=== PATIENT | female | born 1995 | race Caucasian/White ===

== ENCOUNTER 2017-02-04 01:53 | Inpatient (IN) | payer OTHER ==
[2017-02-04 03:14] LABS: Hematocrit 35 % (35-47); Hemoglobin 11.5 g/dl (12.0-16.0); Mean Corpuscular HGB Conc 33 g/dl (31-36); Mean Corpuscular Hemoglobin 26 pg (27-31); Mean Corpuscular Volume 80 fL (80-97); Mean Platelet Volume 9 um3 (7.4-10.4); Red Blood Count 4.37 10^6/ul (4.0-5.4); Red Cell Distribution Width 16 % (10.5-15); White Blood Count 15.5 10^3/ul (3.5-10.8)
[2017-02-04 03:21] LABS: Add Diff/Slide Review? Slide Review Added; Comments Flag Yes
[2017-02-04] MEDS ORDERED: OBEPIDURAL* 250 ML ONE (05:13)
[2017-02-04] MEDS ORDERED: Phenylephrine IV* 40 MCG/ML 10 ML SYRINGE IV PUSH PRN ×2 (05:14)
[2017-02-04] MEDS ORDERED: Famotidine TAB* 20 MG PO PRN (05:14)
[2017-02-04] MEDS ORDERED: OBEPIDURAL* 250 ML EPIDURAL SCH (06:00)
[2017-02-04] MEDS ORDERED: Ondansetron INJ* 2 MG/ML VIAL IV PRN ×2 (08:24→12:35)
[2017-02-04] MEDS ORDERED: Oxytocin in LR* 20 UNITS/1,000 ML BAG IVPB ONE (08:33)
[2017-02-04] MEDS ORDERED: Ondansetron INJ* 2 MG/ML VIAL ONE ×2 (08:33→12:10)
[2017-02-04] MEDS ORDERED: Oxytocin in LR* 20 UNITS/1,000 ML BAG IVPB SCH ×2 (09:00→13:00)
[2017-02-04] MEDS ORDERED: Nalbuphine* 20 MG/ML 1 ML VIAL ONE (09:52)
[2017-02-04] MEDS: Nalbuphine* 20 MG/ML 1 ML VIAL IV PRN ×2 (09:53→20:50)
[2017-02-04] MEDS ORDERED: Sodium Citrate/Citric Acid* 15 ML UDC ONE (10:50)
[2017-02-04] MEDS ORDERED: ceFOXitin 2 GM IVPREMIX* 2 GM/50 ML BAG ONE (10:50)
[2017-02-04] MEDS ORDERED: Remifentanil* 2 MG VIAL ONE (11:38)
[2017-02-04] MEDS ORDERED: Morphine PF AMP (0.5MG/ML)* 5 MG/10 ML AMP ONE (11:57)
[2017-02-04] MEDS ORDERED: Ropivacaine (OR use only) 2 MG/ML 1 ML ONE (12:10)
[2017-02-04] MEDS ORDERED: Nalbuphine* 20 MG/ML 1 ML VIAL IV PRN (12:35)
[2017-02-04] MEDS ORDERED: DiMENhydriNATE IV* 50 MG/ML VIAL IV PUSH PRN ×2 (12:35→12:40)
[2017-02-04] MEDS ORDERED: Naloxone* 0.4 MG/ML 1 ML VIAL IV PRN (12:35)
[2017-02-04] MEDS ORDERED: Naloxone* 2 MG in NS 0.9% 250 ML* 250 ML IV PRN (12:35)
[2017-02-04] MEDS ORDERED: oxyCODONE/Acetamin 5/325 MG* TAB ONE (12:37)
[2017-02-04] MEDS: oxyCODONE/Acetamin 5/325 MG* TAB PO PRN ×3 (12:40→20:48)
[2017-02-04] MEDS ORDERED: Dibucaine 1% 28.35 GM TUBE PR PRN (12:44)
[2017-02-04] MEDS ORDERED: Witch Hazel PAD* JAR TOPICAL PRN (12:44)
[2017-02-04] MEDS ORDERED: Acetaminophen TAB* 325 MG PO PRN (12:44)
[2017-02-04] MEDS ORDERED: Glycerin ADULT SUPP PR PRN (12:44)
[2017-02-04] MEDS ORDERED: Zolpidem TAB* 5 MG PO PRN (12:44)
[2017-02-04] MEDS ORDERED: fentaNYL* 50 MCG/ML 2 ML VIAL (100 MCG VIAL) ONE (12:52)
[2017-02-04] MEDS: fentaNYL* 50 MCG/ML 2 ML VIAL (100 MCG VIAL) IV PRN ×2 (12:53→13:00)
[2017-02-04] MEDS: Docusate CAP* 100 MG PO SCH ×2 (14:43→20:49)
[2017-02-04] MEDS: Simethicone TAB* 80 MG TAB.CHEW PO SCH ×2 (18:30→20:49)
[2017-02-04] MEDS: Ibuprofen TAB* 600 MG PO PRN (18:30)
[2017-02-05] MEDS: Ibuprofen TAB* 600 MG PO PRN ×4 (00:49→20:46)
[2017-02-05] MEDS: oxyCODONE/Acetamin 5/325 MG* TAB PO PRN ×6 (00:50→23:49)
--- NOTE | 2017-02-05 05:17 | OP ---
DATE OF OPERATION: 02/04/17 - ROOM #117 DATE OF : 89 SURGEON: Henry Davis MD INVESTOR RELATIONS DIRECTOR: Kim Haines CNM PRE-OP DIAGNOSIS: Category 2 tracing remote from delivery. POST-OP DIAGNOSIS: Category 2 tracing remote from delivery. OPERATIVE PROCEDURE: Low transverse section. ESTIMATED BLOOD LOSS: 600 cc. COMPLICATIONS: None. FINDINGS: This is a 22-year-old 1, para 0, who presented in active labor. She got an epidural, approximately 3 cm progressed slowly up to 4 and was started on Pitocin with artificial rupture of membranes. Began to have deep variable decels that were recurrent with each contraction. Despite position change and O2 and IV fluids, it did not resolve and decision was made to proceed with . The risks, benefits , alternatives, and indications were discussed. Questions were answered at the time of section. She had a viable male, 's 9 and 9. The weight was 8 pounds 7 ounces. There was a nuchal cord noted around x1 and the cord up along the head along the pubic symphysis. Normal-appearing fallopian tubes and ovaries were visualized. DESCRIPTION OF PROCEDURE: The patient identified, procedure identified as a low transverse section. The patient was taken to the operating room, prepped and draped in the usual fashion in the left lateral recumbent position under epidural anesthesia. A Pfannenstiel incision made in the abdomen and carried down through fat, fascia, and peritoneum. A transverse incision was made in the lower uterine segment, extended laterally using blunt dissection. The above was delivered through the incision and the cord was doubly clamped and cut. The infant was handed to the waiting perianesthesia rn. Cord blood was obtained. Placenta delivered spontaneously. The uterus was wiped out with wet lap sponge. The uterine incision was then closed using 0 Polysorb in a running fashion. A second layer was used to imbricate the first layer. Good hemostasis was verified. The gutter was wiped out with a wet lap sponge. The peritoneum was then closed using 3- 0 Polysorb in a running fashion. Good hemostasis achieved in the subrectus layers. The fascia was closed using 0 Polysorb in a running fashion. Good hemostasis achieved in the subcu and the skin was closed with 4- 0 Monocryl in a subcuticular fashion. All sponge and instrument counts were correct. The patient returned to the recovery room in stable condition. [id number]/[facility] #: [id number] CRISTY
[2017-02-05 08:16] LABS: Hematocrit 27 % (35-47); Hemoglobin 8.7 g/dl (12.0-16.0); Mean Corpuscular HGB Conc 33 g/dl (31-36); Mean Corpuscular Hemoglobin 26 pg (27-31); Mean Corpuscular Volume 80 fL (80-97); Mean Platelet Volume 9 um3 (7.4-10.4); Red Blood Count 3.34 10^6/ul (4.0-5.4); Red Cell Distribution Width 17 % (10.5-15); White Blood Count 12.6 10^3/ul (3.5-10.8)
[2017-02-05] MEDS: Ferrous Gluconate TAB* 324 MG TAB PO SCH ×2 (08:56→20:46)
[2017-02-05] MEDS: Docusate CAP* 100 MG PO SCH ×3 (08:58→20:46)
[2017-02-05] MEDS: Simethicone TAB* 80 MG TAB.CHEW PO SCH ×4 (08:58→20:46)
[2017-02-05] MEDS ORDERED: Influenza VAC *QUAD* 2017-18* 0.5 ML SYRINGE IM ONE (09:00)
[2017-02-06] MEDS: Ibuprofen TAB* 600 MG PO PRN ×4 (03:45→22:58)
[2017-02-06] MEDS: oxyCODONE/Acetamin 5/325 MG* TAB PO PRN ×4 (06:12→22:59)
[2017-02-06] MEDS: Ferrous Gluconate TAB* 324 MG TAB PO SCH ×2 (09:15→21:40)
[2017-02-06] MEDS: Simethicone TAB* 80 MG TAB.CHEW PO SCH ×4 (09:15→21:40)
[2017-02-06] MEDS: Docusate CAP* 100 MG PO SCH ×3 (13:54→21:40)
[2017-02-07] MEDS: oxyCODONE/Acetamin 5/325 MG* TAB PO PRN (06:18)
[2017-02-07] MEDS: Ibuprofen TAB* 600 MG PO PRN (06:18)
[2017-02-07 07:46] VITALS: BP 121/62
[2017-02-07] MEDS: Simethicone TAB* 80 MG TAB.CHEW PO SCH (08:44)
[2017-02-07] MEDS: Ferrous Gluconate TAB* 324 MG TAB PO SCH (08:45)
[2017-02-07] MEDS: Docusate CAP* 100 MG PO SCH (09:42)
== END 2017-02-07 10:37 | disposition home or self-care (01) | DRG 766 ==
LOC: MCHOBOUT 01:53 → MCHOB 02:50
PROVIDERS: ADMIT Midwife; ATTEND Obstetrics & Gynecology
PROC: 10907ZC Drainage of Amniotic Fluid, Therapeutic from Products of Conception, Via Natural or Artificial Opening (ICD-10-PCS; 2017-02-04)
PROC: 4A1HX4Z Monitoring of Products of Conception, Cardiac Electrical Activity, External Approach (ICD-10-PCS; 2017-02-04)
PROC: 10D00Z1 Extraction of Products of Conception, Low, Open Approach (ICD-10-PCS; principal; 2017-02-04 11:24)
PROC: 3E0234Z Introduction of Serum, Toxoid and Vaccine into Muscle, Percutaneous Approach (ICD-10-PCS; 2017-02-06)
DX: O76 Abnormality in fetal heart rate and rhythm complicating labor and delivery (principal); O90.81 Anemia of the puerperium; Z37.0 Single live birth; O69.81X0 Labor and delivery complicated by cord around neck, without compression, not applicable or unspecified; Z3A.39 39 weeks gestation of pregnancy; O99.824 Streptococcus B carrier state complicating childbirth; Z23 Encounter for immunization
CPT/HCPCS: 36415; 85025; 86850; 86900; 86901; 90686; 99460; 99464; A9270-GY; J0694; J2300; J2405; J2540; J2795; J3010

== ENCOUNTER 2019-08-22 05:50 | Inpatient (IN) | payer MEDICAID, OTHER ==
[~2019-08-22 05:50] MED LIST: Buffered Lidocaine 1% SYRIN* 1 ML/SYRINGE INTRADERM ONE
--- OUTSIDE RECORDS SUMMARY | 2019-08-22 05:54 | XMS REPORT | Continuity of Care Document ---
:1995 External Reference #:[id number] Author Name Henry Davis M.D. 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 Problems Provider Date H/O: section Kim Haines CNM Onset: 03/02/2017 Social History Type Date Description Comments Sex Unknown Tobacco Use Start: Unknown Never Smoked Cigarettes Smoking Status Reviewed: 08/17/19 Never Smoked Cigarettes ETOH Use Does Not Drink Alcohol Tobacco Use Start: Unknown Patient has never smoked Recreational Drug Use Does Not Use Drugs Exercise Type/Frequency Does not exercise Seat Belt/Car Seat Always uses seat belt BRANDY: 02/09/2017 Estimated Date of Delivery Based on LMP Allergies, Adverse Reactions, Alerts Description No Known Drug Allergies Medications Active Medications SIG Qnty Indications Ordering Provider Date Ibuprofen take one tab by 30tabs Z01.818 Henry Davis, 08/17/2019 600mg Tablets mouth every 6 M.D. hours as needed pain Sertraline HCL 1 by mouth every 90tabs Desiree Daniels, 07/05/2019 25mg day Tablets Famotidine 1 by mouth daily. 60tabs Kim Haines CNM 03/07/2019 20mg Tablets may increase to twice a day as needed Medications Administered in Office Medication SIG Qnty Indications Ordering Provider Date PT SCRN Tbco Id as Non User Henry Davis M.D. 08/17/2019 Injection PT SCRN Tbco Id as Non User Desiree Daniels MD 03/22/2018 Injection PT SCRN Tbco Id as Non User Desiree Daniels MD 02/18/2018 Injection Doc Med RSN No Tbco SCRN Constanza Fausto, [facility] 08/31/2017 Injection PT SCRN Tbco Id as Non User Constanza Lambert, [facility] 08/31/2017 Injection PT SCRN Tbco Id as Non User Faiza Devries, [facility] 08/28/2017 Injection Immunizations CPT Code Status Date Vaccine Lot # [id number] Given 07/05/2019 Tetnus, Diptheria Toxoids And Acellular Pertussis, [id number] PT > 7Yrs Old 22996 Given 02/21/2019 Influenza Vaccine Quadrivalent Preser/Antibiotic [id number] Free Im Use 45882 Given 11/12/2016 Tetnus, Diptheria Toxoids And Acellular Pertussis, [id number] PT > 7Yrs Old Vital Signs Date Vital Result Comment 08/17/2019 9:01am BP Systolic 128 mmHg BP Diastolic 82 mmHg Body Temperature 98.1 F Heart Rate 84 /min Respiratory Rate 19 /min Height 64 inches 5'4" Weight 192.00 lb BMI (Body Mass Index) 33.0 kg/m2 3 Parity 1 01/21/2019 1:23pm BP Systolic 106 mmHg BP Diastolic 58 mmHg Height 64 inches 5'4" Weight 143.00 lb BMI (Body Mass Index) 24.5 kg/m2 3 Parity 1 Results Test Acquired Facility Test Result H/L Range Note Date Laboratory test 08/14/2019 [facility] Rupture of Negative 1 [place] [address] Membranes [phone] Urine Culture And 08/02/2019 [facility] Urine Culture SEE RESULT 2, 3 [place] [address] BELOW [phone] Laboratory test 08/02/2019 [facility] Gardnerella/Y SEE RESULT 4, 5 [place] [address] east: Vaginal BELOW [phone] Dna Laboratory test 08/02/2019 [facility] Group B Strep SEE RESULT 6, 7 [place] [address] Culture BELOW [phone] Screen Laboratory test 05/17/2019 [facility] Glucose 1 HR 88 mg/dL Normal 70-160 8, 9 [place] [address] Post Prandial [phone] CBC With No Diff 05/17/2019 [facility] White Blood 11.4 High 3.5-10.8 [place] [address] Count 10^3/uL [phone] Red Blood Count 4.15 10^6/uL Normal 3.70-4.87 Hemoglobin 12.5 g/dL Normal 12.0-16.0 Hematocrit 38 % Normal 35-47 Mean Corpuscular Volume 91 fL Normal 80-97 Mean Corpuscular Hemoglobin 30 pg Normal 27-31 Mean Corpuscular HGB Conc 33 g/dL Normal 31-36 Red Cell Distribution Width 15 % Normal 10-15 Platelet Count 228 10^3/uL Normal 150-450 Mean Platelet Volume 8.8 fL Normal 7.4-10.4 Laboratory 05/17/2019 [facility] Rubella Screen Equivocal Immune 10 [place] [address] IgG [phone] Drug Screen 03/29/2019 [facility] Urine None Detected None 11 [place] [address] Amphetamine Detect [facility] [phone] Screen Urine Barbiturates Screen None Detected None Detect Urine Benzodiazepine Screen None Detected None Detect Urine Cannabinoids Screen None Detected None Detect Urine Opiates Screen None Detected None Detect Urine Phencyclidine Screen None Detected None Detect 12 Urine Cocaine Screen None Detected None Detect Urine Hydrocodone Screen None Detected None Detect Urine Oxycodone Screen None Detected None Detect Urine Fentanyl Screen None Detected None Detect Urine Methadone Screen None Detected None Detect Urine Buprenorphine Screen None Detected None Detect GC/Chlamydia Dna 03/29/2019 [facility] GCCHL Disclaimer (SEE NOTE) 13 [place] [address] [phone] Chlamydia trachomatis Cheyenne Negative Negative Neisseria gonorrhoeae (GC) [place] Negative Negative 1 A NEGATIVE results indicates there is no evidence of membrane rupture. 2 [id number] 3 SEE RESULT BELOW Name: KEATON OTT DOB: [address]: Desiree Daniels MD Acct: [id number] Unit: [id number] AGE: 24 Location: [facility] Re08/02/19 SEX: F Status: REG REF SPEC: [id number] CRISTOBAL: 08/02/19-[address]: Desiree Daniels MD REQ: [id number] RECD: 08/02/19 STATUS: COMP _ SOURCE: URINE SPDESC: ORDERED: Urine Culture COMMENTS: [id number] Urine Source: Random Procedure Result Reported Site Urine Culture Final 08/03/19- 1221 ML No Growth (<1,000 CFU/mL) * - Main Lab . END OF REPORT DEPARTMENT OF PATHOLOGY, [address] [place] [address] Noel Heard M.D. Director NIKKIE # [id number] 4 [id number] 5 SEE RESULT BELOW Name: KEATON OTT : [address]: Desiree Daniels MD Acct: [id number] Unit: [id number] AGE: 24 Location: [facility] Re08/02/19 SEX: F Status: REG REF SPEC: [id number] CRISTOBAL: 08/02/19-[address] [facility] [address]: Desiree Daniels MD REQ: [id number] RECD: 08/02/19 STATUS: COMP _ SOURCE: VAGINAL SPDESC: ORDERED: Christophe,Yeast DNA COMMENTS: [id number] Would you like to order Trichomonas Vaginalis testing? No Procedure Result Reported Site Gardnerella/Yeast: Vaginal DNA Final 08/03/19- 1404 ML Organism 1 Negative Gardnerella Organism 2 Negative Anna Marie The presence of G. vaginalis, although suggestive, is not diagnostic for bacterial vaginosis. Results should be interpreted in conjuction with other clinical and laboratory data available. Women with vaginal discharge should be evaluated for risk factors of cervicitis and pelvic inflammatory disease, toxic shock syndrome (S.aureus), and if present, evaluated for organisms not included in this assay such as N. gonorrhoeae, C. trachomatis, Mobiluncus, Mycoplasma and/or Prevotella. Mixed infections may occur. The performance of this test on patient specimens collected during or immediately after antimicrobial therapy is unknown. The presence or absence of Anna Marie species, or G. vaginalis cannot be used as a test for therapeutic success or failure. * ML - Main Lab . END OF REPORT DEPARTMENT OF PATHOLOGY, [address] [place] [address] Noel Heard M.D. Director NIKKIE # [id number] 6 [id number] 7 SEE RESULT BELOW Name: KEATON OTT : [address]: Desiree Daniels MD Acct: [id number] Unit: [id number] AGE: 24 Location: [facility] Re08/02/19 SEX: F Status: REG REF SPEC: [id number] CRISTOBAL: 08/02/19-[address]: Desiree Daniels MD REQ: [id number] RECD: 08/02/19-1617 STATUS: COMP _ SOURCE: CER/VAG/RE SPDESC: ORDERED: Grp B Strp Scrn COMMENTS: [id number] QUERIES: Is patient penicillin allergic and/or sensitivities needed? N Provider Requisition # C77#[id number]_ Procedure Result Reported Site Group B Strep Culture Screen Final 08/04/19- 1446 ML Group B Strep Screen Positive Organism 1 STREP GROUP B Susceptibility testing of penicillins and other B-lactams approved by FDA for treatment of Streptococcus pyogenes (Group A Strep) and Streptococcus agalactiae (Group B Strep) is not necessary for clinical purposes and need not be done routinely, since as with vancomycin, resistant strains have not been recognized. (CLSI K469-B07;p.66) Positive isolates will be saved for one week. Please call the Microbiology Laboratory if further susceptibility testing is needed. * ML - Main Lab . END OF REPORT DEPARTMENT OF PATHOLOGY, [address] [place] [address] Noel Heard M.D. Director [facility] # [id number] 8 [id number] 11 [id number] 12 The specimen was tested at the listed cutoffs: Drug Class Test level (ng/mL) Hydrocodone 300 Oxycodone 100 Fentanyl 1 Methadone 150 Buprenorphine 5 Amphetamines 500 Barbiturates 200 Benzodiazepines 200 Cocaine 150 Cannabinoids 50 Opiates 300 PCP 25 Specimen was received without chain of custody. Results should be used for medical purposes only. 13 As with all diagnostic procedures, the laboratory results obtained should be used in conjunction with other clinical information available to the physician, including confirmation by another method, as applicable. Procedures Date Code Description Status 08/14/2019 93967 Non-Stress Test Completed 03/29/2019 29148 Echography Uterus Complete Completed Medical Devices Description No Information Available Encounters Type Date Location Provider Dx Diagnosis Office Visit 08/17/2019 [facility] Henry Davis, Z01.818 Encounter for other 9:20a M.DAbrahan preprocedural examination Office Visit 08/14/2019 Delivery Mor Mayorga MD O47.1 False labor at or 11:30a after 37 completed weeks of gestation Assessments Date Code Description Provider 08/17/2019 Z01.818 Encounter for other preprocedural Henry Davis M.D. examination 08/14/2019 O47.1 False labor at or after 37 completed weeks Mor Mayorga MD of gestation 08/12/2019 O34.211 Maternal care for low transverse scar from Aurea Anaya MD previous delivery 08/02/2019 Z34.83 Encounter for supervision of other normal Desiree Daniels MD , third trimester 07/19/2019 Z34.83 Encounter for supervision of other normal Henry Davis M.D. , third trimester 07/05/2019 Z23 Encounter for immunization Desiree Daniels MD 07/05/2019 Z34.83 Encounter for supervision of other normal Desiree Daniels MD , third trimester 06/20/2019 Z34.83 Encounter for supervision of other normal Henry Davis M.D. , third trimester 05/17/2019 Z36.9 Encounter for screening, Henry Davis M.D. unspecified 05/17/2019 Z36.9 Encounter for screening, Mor Mayorga MD unspecified 05/17/2019 Z36.9 Encounter for screening, Laboratory unspecified 04/20/2019 Z36.9 Encounter for screening, Aurea Anaya MD unspecified 03/29/2019 Z36.3 Encounter for screening for Shahid Scott JR, DO malformations 03/29/2019 O34.211 Maternal care for low transverse scar from Shahid Benjaminpankaj MEHTA, DO previous delivery 03/29/2019 Z36.3 Encounter for screening for Ultrasounds malformations 02/21/2019 Z23 Encounter for immunization Shahidtalia Benjaminpankaj MEHTA DO 02/21/2019 Z36.9 Encounter for screening, Shahid Benjaminpankaj MEHTA, DO unspecified Plan of Treatment Future Appointment(s):09/21/2019 10:40 am - Henry Davis M.D. at [facility]08/22/2019 7:45 am - Kim Haines CNM at [facility] O R008/29/2019 11:15 am - Carmencita Hodges CNM at [facility]08/22/2019 7:45 am - Henry Davis M.D. at [facility] O R105/22/2017 - Desiree Daniels MDZ01.411 Encounter for gynecological examination (general) (routine)New Medication:Lo Loestrin Fe 1 mg- 10 mcg / 10 mcg - take 1 tab by mouth daily as instructed on package.Comments: Maintain routine exercise and healthy diet. Try to get adequate sleep at night to improve your overall health (most people need ~8 hours!)Perform periodic breast exams at various times of the month to become familiar with your breast tissue so you are more likely to notice something abnormal. Return for annual exam in 1 year or earlier if concerns arise. Routine cervical cancer screening has changed. Pap smears are no longer done every year for low-risk women. A combination screening with both a pap smear (looking for abnormal cells ) and HPV testing are recommended every 3-5 years. It takes many years for normal cells to become abnormal and many more years for the abnormal cells to become cancer. Women should still come for a yearly visit and exam. When there is an abnormal pap smear or +HPV testing more frequent screening is recommended. Reviewed importance of taking OCPs daily. Will start with onset of next period which should be any time.F41.9 Anxiety disorder, unspecifiedComments:Given list of [id number] Headache Functional Status Description No Information Available Mental Status Description No Information Available Referrals Description No Information Available
--- OUTSIDE RECORDS SUMMARY | 2019-08-22 05:54 | XMS REPORT | Continuity of Care Document ---
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 Problems Active Problems Provider Date H/O: section Kim Haines CNM Onset: 03/02/2017 Social History Type Date Description Comments Sex Unknown Tobacco Use Start: Unknown Never Smoked Cigarettes Smoking Status Reviewed: 03/22/18 Never Smoked Cigarettes ETOH Use Does Not Drink Alcohol Tobacco Use Start: Unknown Patient has never smoked Recreational Drug Use Does Not Use Drugs Exercise Type/Frequency Does not exercise Seat Belt/Car Seat Always uses seat belt BRANDY: 02/09/2017 Estimated Date of Delivery Based on LMP Allergies, Adverse Reactions, Alerts Description No Known Drug Allergies Medications Active Medications SIG Qnty Indications Ordering Provider Date Sertraline HCL 1 by mouth every 90tabs Desiree Daniels, 07/05/2019 25mg day Tablets Famotidine 1 by mouth daily. 60tabs Kim Haines CNM 03/07/2019 20mg Tablets may increase to twice a day as needed Vitamin take 1 daily by Unknown mouth Tablets Medications Administered in Office Medication SIG Qnty Indications Ordering Provider Date PT SCRN Tbco Id as Non User Desiree Daniels MD 03/22/2018 Injection PT SCRN Tbco Id as Non User Desiree Daniels MD 02/18/2018 Injection Doc Med RSN No Tbco SCRN Constanza Lambert CNM 08/31/2017 Injection PT SCRN Tbco Id as Non User Constanza Lambert CNM 08/31/2017 Injection PT SCRN Tbco Id as Non User Faiza Devries, CN 08/28/2017 Injection Immunizations CPT Code Status Date Vaccine Lot # [id number] Given 07/05/2019 Tetnus, Diptheria Toxoids And Acellular Pertussis, 49R79 PT > 7Yrs Old 12579 Given 02/21/2019 Influenza Vaccine Quadrivalent Preser/Antibiotic [id number] Free Im Use 34297 Given 11/12/2016 Tetnus, Diptheria Toxoids And Acellular Pertussis, 7z9z5 PT > 7Yrs Old Vital Signs Date Vital Result Comment 01/21/2019 1:23pm BP Systolic 106 mmHg BP Diastolic 58 mmHg Height 64 inches 5'4" Weight 143.00 lb BMI (Body Mass Index) 24.5 kg/m2 3 Parity 1 03/22/2018 11:18am BP Systolic 110 mmHg BP Diastolic 78 mmHg Height 64 inches 5'4" Weight 137.00 lb BMI (Body Mass Index) 23.5 kg/m2 Last Menstrual Period [id number] 1 Parity 1 Results Test Acquired Date Facility Test Result H/L Range Note Laboratory test 08/02/2019 [facility] Gardnerella/Y <pending> [place] [address] east: Vaginal [phone] Dna Laboratory test 08/02/2019 [facility] Genital For <pending> [place] [address] GRP B Strep [phone] Only Laboratory test 05/17/2019 [facility] Glucose 1 HR 88 mg/dL Normal 70-160 1, 2 [place] [address] Post Prandial [phone] CBC With No 05/17/2019 [facility] White Blood 11.4 High 3.5- 10.8 [place] [address] Count 10^3/uL [phone] Red Blood Count 4.15 10^6/uL Normal 3.70-4.87 Hemoglobin 12.5 g/dL Normal 12.0-16.0 Hematocrit 38 % Normal 35-47 Mean Corpuscular Volume 91 fL Normal 80-97 Mean Corpuscular Hemoglobin 30 pg Normal 27-31 Mean Corpuscular HGB Conc 33 g/dL Normal 31-36 Red Cell Distribution Width 15 % Normal 10-15 Platelet Count 228 10^3/uL Normal 150-450 Mean Platelet Volume 8.8 fL Normal 7.4-10.4 Laboratory 05/17/2019 [facility] Rubella Screen Equivocal Immune 3 [place] [address] IgG [phone] Drug Screen 03/29/2019 [facility] Urine None Detected None 4 [place] [address] Amphetamine Detect Clinic [phone] Screen Urine Barbiturates Screen None Detected None Detect Urine Benzodiazepine Screen None Detected None Detect Urine Cannabinoids Screen None Detected None Detect Urine Opiates Screen None Detected None Detect Urine Phencyclidine Screen None Detected None Detect 5 Urine Cocaine Screen None Detected None Detect Urine Hydrocodone Screen None Detected None Detect Urine Oxycodone Screen None Detected None Detect Urine Fentanyl Screen None Detected None Detect Urine Methadone Screen None Detected None Detect Urine Buprenorphine Screen None Detected None Detect GC/Chlamydia Dna 03/29/2019 [facility] GCCHL Disclaimer (SEE NOTE) [address] [place] [address] [phone] Chlamydia trachomatis [place] Negative Negative Neisseria gonorrhoeae (GC) [place] Negative Negative 1 [id number] 2 [id number] 3 [id number] 4 [id number] 5 The specimen was tested at the listed cutoffs: Drug Class Test level (ng/mL) Hydrocodone 300 Oxycodone 100 Fentanyl 1 Methadone 150 Buprenorphine 5 Amphetamines 500 Barbiturates 200 Benzodiazepines 200 Cocaine 150 Cannabinoids 50 Opiates 300 PCP 25 Specimen was received without chain of custody. Results should be used for medical purposes only. 6 As with all diagnostic procedures, the laboratory results obtained should be used in conjunction with other clinical information available to the physician, including confirmation by another method, as applicable. Procedures Date Code Description Status 03/29/2019 36594 Echography Uterus Complete Completed Medical Devices Description No Information Available Encounters Description No Information Available Assessments Date Code Description Provider 08/02/2019 Z34.83 Encounter for supervision of other [...] Z36.3 Encounter for screening for Shahid Scott JR DO malformations 03/29/2019 O34.211 Maternal care for low transverse scar from Shahid Scott JR DO previous delivery 03/29/2019 Z36.3 Encounter for screening for Ultrasounds malformations 02/21/2019 Z23 Encounter for immunization Shahid Scott JR, DO 02/21/2019 Z36.9 Encounter for screening, Shahid Scott JR DO unspecified Plan of Treatment Future Appointment(s):09/21/2019 10:40 am - Henry Davis M.D. at [facility]08/22/2019 7:45 am - Kim Haines CNM at [facility] O R008/29/2019 11:15 am - Carmencita Hodges CNM at [facility]08/22/2019 7:45 am - Henry Davis M.D. at [facility] O R008/09/2019 10:30 am - Desiree Daniels MD at [facility] 9:00 am - Henry Davis M.D. at [facility]03/22/2018 - Desiree Daniels MDZ01.411 Encounter for gynecological examination (general) (routine)New Medication:Lo Loestrin Fe 1 mg-10 mcg / 10 mcg - take 1 tab by mouth daily as instructed on package.Comments:Maintain routine exercise and healthy diet. Try to [...] combination screening with both a pap smear ( looking for abnormal cells) and HPV testing are recommended every 3-5 [...] any time.F41.9 Anxiety disorder, unspecifiedComments:Given list of [id number] Headache Functional Status Description No Information Available Mental Status Description No Information Available Referrals Description No Information Available
--- OUTSIDE RECORDS SUMMARY | 2019-08-22 05:54 | XMS REPORT | Continuity of Care Document ---
:1995 External Reference #:[id number] Author Name Aurea Anaya MD (transmitted by agent of provider Mary Jane Avina) Address [address] [place] [address] Care Team Providers Name Role Phone Yodit Curran FNP-C Care Team Information Geographic Information Systems Analyst [phone] Problems Active Problems Provider Date H/O: section [...] every 90tabs Desiree Daniels, 07/05/2019 25mg day MD Tablets Famotidine 1 by mouth daily. 60tabs Kmi Haines CNM 03/07/2019 20mg Tablets may increase [...] CPT Code Status Date Vaccine Lot # [id number] Given 07/05/2019 Tetnus, Diptheria Toxoids And Acellular Pertussis, [id number] PT > 7Yrs Old [address] Given 02/21/2019 Influenza Vaccine Quadrivalent Preser/Antibiotic [id number] Free Im Use 11986 Given 11/12/2016 Tetnus, Diptheria Toxoids And Acellular [...] Mass Index) 23.5 kg/m2 Last Menstrual Period [id number] 1 Parity 1 Results Test Acquired Facility Test Result H/L Range Note Date Urine Culture And 08/02/2019 [facility] Urine SEE RESULT 1 , 2 [place] [address] Culture BELOW [phone] Laboratory test 08/02/2019 [facility] Gardnerella/ SEE RESULT 3, 4 [place] [address] Yeast: BELOW [phone] Vaginal Dna Laboratory test 08/02/2019 [facility] Group B SEE RESULT 5 , 6 [place] [address] Strep BELOW [phone] Culture Screen Laboratory test 05/17/2019 [facility] Glucose 1 HR 88 mg/dL Normal 70-160 7, 8 [place] [address] Post [phone] Prandial CBC With No Diff 05/17/2019 [facility] White Blood 11.4 High 3.5-10.8 [place] [address] Count 10^3/uL [phone] Red Blood Count 4.15 10^6/uL Normal 3.70-4.87 Hemoglobin 12.5 g/dL Normal 12.0-16.0 Hematocrit 38 % Normal 35-47 Mean Corpuscular Volume 91 fL Normal 80-97 Mean Corpuscular Hemoglobin 30 pg Normal 27-31 Mean Corpuscular HGB Conc 33 g/dL Normal 31-36 Red Cell Distribution Width 15 % Normal 10-15 Platelet Count 228 10^3/uL Normal 150-450 Mean Platelet Volume 8.8 fL Normal 7.4-10.4 Laboratory 05/17/2019 [facility] Rubella Screen Equivocal Immune 9 [place] [address] IgG [phone] Drug Screen 03/29/2019 [facility] Urine None Detected None 10 [place] [address] Amphetamine Detect Clinic [phone] Screen Urine Barbiturates Screen None Detected None Detect Urine Benzodiazepine Screen None Detected None Detect Urine Cannabinoids Screen None Detected None Detect Urine Opiates Screen None Detected None Detect Urine Phencyclidine Screen None Detected None Detect 11 Urine Cocaine Screen None Detected None Detect Urine Hydrocodone Screen None Detected None Detect Urine Oxycodone Screen None Detected None Detect Urine Fentanyl Screen None Detected None Detect Urine Methadone Screen None Detected None Detect Urine Buprenorphine Screen None Detected None Detect GC/Chlamydia Dna 03/29/2019 [facility] Disclaimer (SEE NOTE) [address] [place] [address] [phone] Chlamydia trachomatis [place] Negative Negative Neisseria gonorrhoeae (GC) [place] Negative Negative 1 [id number] 2 SEE RESULT BELOW Name: KEATON OTT : [address]: Desiree Daniels MD Acct: [id number] Unit: [id number] AGE: 24 Location: [facility] Re08/02/19 SEX: F Status: REG REF SPEC: [id number] CRISTOBAL: 08/02/19-13[address] [facility] [address]: Desiree Daniels MD REQ: [id number] RECD: 08/02/19 STATUS: COMP _ SOURCE: URINE SPDESC: ORDERED: Urine Culture COMMENTS: [id number] Urine Source: Random Procedure Result Reported Site Urine Culture Final 08/03/19- 1221 ML No Growth (<1,000 CFU/mL) * ML - Main Lab . END OF REPORT DEPARTMENT OF PATHOLOGY, [address] [place] [address] Noel Heard M.D. Director [facility] # [id number] 3 [id number] SEE RESULT BELOW Name: KEATON OTT : [address]: Desiree Daniels MD Acct: [id number] Unit: [id number] AGE: 24 Location: [facility] Re08/02/19 SEX: F Status: REG REF SPEC: [id number] CRISTOBAL: 08/02/19-[address]: Desiree Daniels MD REQ: [id number] RECD: 08/02/19 STATUS: COMP _ SOURCE: VAGINAL SPDESC: ORDERED: ChristopheYeast DNA COMMENTS: [id number] Would you like to order Trichomonas Vaginalis [...] . END OF REPORT DEPARTMENT OF PATHOLOGY, [address] [place] [address] Noel Heard M.D. Director [facility] # [id number] 5 [id number] 6 SEE RESULT BELOW Name: OTTKEATON KATHRYN : [address]: Desiree Daniels MD Acct: [id number] Unit: [id number] AGE: 24 Location: [facility] Re08/02/19 SEX: F Status: REG REF SPEC: [id number] CRISTOBAL: 08/02/19-[address]: Desiree Daniels MD REQ: [id number] RECD: 08/02/19 STATUS: COMP _ SOURCE: CER/VAG/RE SPDESC: ORDERED: Conrado Beltran Scrn COMMENTS: [id number] QUERIES: Is patient penicillin allergic and/or sensitivities needed? N Provider Requisition # [id number]_ Procedure Result Reported Site Group B Strep [...] resistant strains have not been recognized. (CLSI [id number];p.66) Positive isolates will be saved for one week. Please call the Microbiology Laboratory if further susceptibility testing is needed. * ML - Main Lab . END OF REPORT DEPARTMENT OF PATHOLOGY, [address] [place] [address] Noel Heard M.D. Director [facility] # [id number] 7 [id number] 9 [id number] 10 [id number] 11 The specimen was tested at the listed cutoffs: Drug Class Test level (ng/mL) Hydrocodone 300 Oxycodone 100 Fentanyl 1 Methadone 150 Buprenorphine 5 Amphetamines 500 Barbiturates 200 Benzodiazepines 200 Cocaine 150 Cannabinoids 50 Opiates 300 PCP 25 Specimen was received without chain of custody. Results should be used for medical purposes only. 12 As with all diagnostic procedures, the laboratory results obtained should be used in conjunction with other clinical information available to the physician, including confirmation by another method, as applicable. Procedures Date Code Description Status 03/29/2019 44843 Echography Uterus Complete Completed Medical Devices Description [...] 03/29/2019 Z36.3 Encounter for screening for Shahid Tyler MEHTA, DO malformations 03/29/2019 O34.211 Maternal care for low transverse scar from Shahid Scott JR, DO previous delivery 03/29/2019 Z36.3 Encounter for screening for Ultrasounds malformations 02/21/2019 Z23 Encounter for immunization Shahid Scott JR, DO 02/21/2019 Z36.9 Encounter for screening, Shahid Scott JR, DO unspecified Plan of Treatment Future Appointment(s):08/17/2019 9:20 am - Henry Davis M.D. at [facility]09/21/2019 10:40 am - Henry Davis M.D. at [facility]08/22/2019 7: 45 am - Kim Haines CN[facility] [place] [facility] R008/29/2019 11:15 am - Carmencita Hodges CNM at [facility]08/22/2019 7:45 am - Henry Davis M.D. at [facility] [place] [facility] [id number] - Desiree Daniels MDZ01.411 Encounter for gynecological examination ( general) (routine)New Medication:Lo Loestrin Fe 1 mg-10 mcg [...] both a pap smear (looking for abnormal cells) and HPV testing are [...] any time.F41.9 Anxiety disorder, unspecifiedComments:Given list of [id number] Headache Functional Status Description No Information Available Mental Status Description No Information Available Referrals Description No Information Available
--- OUTSIDE RECORDS SUMMARY | 2019-08-22 05:54 | XMS REPORT | Continuity of Care Document ---
:1995 Author Organization 0001 - S [facility] Address [address] [place] [address] Phone Care Team Providers Name Role Phone CAROL AGRCIA MD Unavailable Unavailable Allergies, Adverse Reactions, Alerts Substance Reaction Status METHYLPHENIDATE HCL Shakiness (moderate to severe) Active Medications Medication Instructions Dosage Effective Dates Status Comments (start - stop) Prozac 20 mg capsule take 2 capsule by 40 MG - Active oral route every day in the morning Topamax 25 mg tablet take 1 by Oral route 1 - Active every bedtime Tamiflu 75 mg take 1 capsule by 75 MG - No Longer capsule oral route 2 times Active every day azithromycin 250 mg take 2 tablet by 500 MG - No Longer tablet oral route every Active day for 1 day then 1 tablet (250 mg) by oral route once daily for 4 days Problems Condition Effective Dates (start - stop) Clinical Status URI with cough and congestion Acute non-recurrent sinusitis, unspecified location Exposure to the flu Viral warts, unspecified type Numbness of left hand Painful lumpy left breast Unspecified lump in the left breast, unspecified quadrant Encounter for screening for - respiratory tuberculosis Cellulitis of left breast Heart palpitations 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 without status migrainosus Encounter for screening for respiratory tuberculosis Painful lumpy left breast Unspecified lump in the left breast, unspecified quadrant Cellulitis of left breast Unspecified lump in the left breast, - upper outer quadrant 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 without status migrainosus Fatigue, unspecified type Heart palpitations Periumbilical abdominal pain Anxiety 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 without status migrainosus Encounter for screening for respiratory tuberculosis 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 without status migrainosus Hematuria, unspecified type Bilious vomiting with nausea URI with cough and congestion Acute pharyngitis, unspecified Cntct w and expsr to environ tobacco - smoke (acute) (chronic) state, incidental - Abdominal pain affecting Hydronephrosis, right Anxiety Anxiety Postop check Encounter for removal of sutures - Cntct w and expsr to environ tobacco - smoke (acute) (chronic) Hypertrophic scar Diarrhea, unspecified type Abdominal pain affecting Unspecified abdominal pain Palpitations Dizziness Palpitations Fatigue, unspecified type Acute sphenoidal sinusitis, unspecified Acute sphenoidal sinusitis, unspecified Keloid of skin Viral URI Other viral agents as the cause of diseases classified elsewhere Major depressive disorder, single episode, unspecified Adult general medical exam Anxiety Encounter for screening for respiratory tuberculosis Foreign body in skin Acute pharyngitis Disorder, attention deficit w/o hyperactivity Subscapularis (muscle) sprain Pain in joint involving shoulder region Sinusitis, Acute Shoulder strain Depression Disorder, attention deficit w/hyperactivity Influenza Vaccine - Depression Disorder, attention deficit w/hyperactivity Wart Warts, other specified viral - Disorder, attention deficit w/o hyperactivity Depression Wart Sinusitis, acute Inguinal lymphadenopathy Skin lesion of left leg Disorder, attention deficit w/hyperactivity Disorder, attention deficit - w/hyperactivity Attention deficit disorder with hyperactivity Disorder, attention deficit - w/hyperactivity Attention deficit disorder with hyperactivity Sinusitis, Acute Disorder, attention deficit - w/hyperactivity Sinusitis, Acute - Rhinitis, allergic NOS Sinusitis, Acute Otitis media Rhinitis, allergic NOS - Sinusitis, Acute - Otitis media NOS - Attention deficit disorder with hyperactivity Disorder, attention deficit - w/hyperactivity Disorder, attention deficit w/o hyperactivity Disorder, attention deficit w/o - hyperactivity Depression Disorder, attention deficit w/o hyperactivity Depression - Disorder, attention deficit w/o - hyperactivity Depressed Depression - Acute lower UTI Urinary Tract Infection - Urinary Tract Infection - Acute lower UTI Urinary Tract Infection - Urinary Tract Infection - Contraception management Contraceptive management NOS - Screening for malignant neoplasm, cervix Screening for malignant neoplasm, - cervix Check, routine, /child - Attention deficit disorder with - Chronic hyperactivity Attention deficit disorder with - Chronic hyperactivity Check, routine, infant/child Routine Procedures Procedure Date Office/outpatient visit,est, mod Results Test Name Date and Time Measure Units Reference Range Abnormal Flag Status Comments Panel Description: Influenza virus A Final SPECIMEN: collection methods: and B and Respiratory syncytial virus NASOPHARYNGEAL RNA panel - Upper respiratory specimen by JUSTYN with probe detection FLU See Final Name: CYNTHIA OTT A/B 11:48:00 comment : 1995 Sex: Galvez# RSV Loc Src Site NAAT [id number] 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 INFLUENZA A/B NAAT FINAL POSITIVE INFLUENZA B RNA BY PCR [facility] DEPT NOTIFIED BY ECLRS RSV NAAT FINAL NEGATIVE FOR RSV RNA BY PCR.GONSALEZ FOR RESULTS: - NEW RESULTATT.PHYS.: ZAHRA TAYLOR LOCATION: [facility]--ADM.DATE: 05/31/19 PATIENT : CYNTHIA OTT MICROBIOLOGYPRINTED: 05/31/19 22:18 REGULAR 2 PAGE: 2 of 1 1NG,,[id number],,[id number],

Encounters Encounter Practice Location Reason(s) Diagnoses Date Provider Providers Description For Visit Copied on Encounter 0001 - [facility] JOSE MEDINA. [facility], [facility] 5-202 [facility] [address], [place] [address]. [place], tel:[phone], [place] [address] tel:[phone] Office/outpa 0001 - S Cold URI with cough and NEDLIK home [employer], Primary symptoms congestionAcute ZAHRA. 119 visit,est, 57 Care (chief non-recurrent [address], mod [facility] complaint) sinusitis, [facility], [place] Cough unspecified [place], [place], [place] (chief locationExposure [address]. [place], complaint) to the flu tel:[phone], [place] [address] tel:[phone] 0001 - [facility] Viral warts, CONSOLAZIO [employer], Walk-In unspecified [place]. Center typeNumbness of 9 [address] [facility], [place], [place], [place], [address]. [address], [place] tel:[phone] tel:[phone] 0001 - S Painful lumpy left Aug-0 LORD PACO. [employer], Primary breastUnspecified 6-201 [facility] 119 33[address]57 Care lump in the left 9 [facility], [facility] breast, [facility], [place] unspecified [place], [place], [place] quadrant [address]. [place], tel:[phone], [place] [address] tel:[phone] 0001 - S Nov-2 LORD ANTONIO. [employer], Primary 2-201 [facility] [address] [place] [address], [facility], [place], [place] [address]. [place], tel:[phone], [place] [address] tel:[phone] 0001 - S Encounter for Champ- PACO. [employer], Primary screening for 2-201 [facility] 119 33[address] [place] [address] tuberculosis [facility], [facility], [place], [place] [address]. [place], tel:[phone], [place] [address] tel:[phone] 0001 - S Cellulitis of left Champ-0 LORD PACO. [employer], Primary breastHeart 4-201 [facility] [address] 33[address] [facility] table persistent [facility], [place] migraine aura [facility] without cerebral [address]. [place], infarction and tel:[phone], [place] without status [address] tel:[phone] migrainosusEncount [phone] er for screening for respiratory tuberculosis 0001 - S Painful lumpy left September-2 LORD PACO. S Inc, Primary breastUnspecified 8-201 [facility] 119 33-57 Care lump in the left 9 [facility], [facility] breast, [facility], [place] unspecified [place], [place] quadrantCellulitis [address]. [place], of left tel:[phone], [place] breastUnspecified [address] tel:[phone] lump in the left [phone] breast, upper outer quadrant 0001 - S Intractable September-0 LORD PACO. S Inc, Primary persistent 1-201 [facility] [address] Care migraine aura 9 [facility] without cerebral [facility], [place] infarction and [facility] without status [address]. [place], migrainosusFatigue tel:[phone], [place] , unspecified [address] tel:[phone] typeHeart [phone] palpitationsPerium bilical abdominal pain 0001 - S AnxietyIntractable Oct-0 LORD PACO. S Inc, Primary persistent 2-201 [facility] [address] 33[address] Care migraine aura 8 [facility] without cerebral [address], [place] infarction and [facility] without status [address]. [place], migrainosusEncount tel:[phone], [place] er for screening [address] tel:[phone] for respiratory [phone] tuberculosis 0001 - S Intractable Nov-2 LORD PACO. S Inc, Primary persistent 6-201 [facility] [address] 33[address] aura [address] [facility] without cerebral [address], [place] infarction and [facility] without status [address]. [place], migrainosus tel:[phone], [place] [address] tel:[phone] 0001 - S Hematuria, LORD PACO. S Inc, Primary unspecified 6 [facility] 119 33[address] [facility] vomiting with [facility], [place], [place] [address]. [place], tel:[phone], [place] [address] tel:[phone] 0001 - S URI with cough and ANGIE S Inc, Walk-In congestionAcute JEFFRY. [address] Center pharyngitis, [address] [place] [address] Iraj unspecifiedCntct w [facility], [place], and expsr to [facility], [address]. [place], smoke (acute) tel:[phone], [place] (chronic) [address] tel:[phone] state, incidental [phone] 0001 - S Abdominal pain LORD PACO. S Inc, Primary affecting [facility] 119 33[address] [facility] rosis, [facility], [place] rightAnxiety [place], [place] [address]. [place], tel:[phone], [place] [address] tel:[phone] 0001 - S Anxiety Oct- LORD PACO. S Inc, Primary [facility] 119 [address] [place] [address], [place], [place] [address]. [place], tel:[phone], [place] [address] tel:[phone] 0001 - S Postop September- FELY ALVINO. [facility] Inc, ENT/Facia checkEncounter for 3 [address] 33[address]57 l Plastic removal of [facility], [address] [facility] suturesCntct w and 355, [facility], expsr to [place], [place], [place] tobacco smoke [address]. [place], (acute) (chronic) tel:[phone], [place] [address] tel:[phone] 0001 - S Hypertrophic scar September- FELY ALVINO. [facility], ENT/Facia 1-201 [address], [address] [facility] 355, [facility], [place], [place] [address]. [place], tel:[phone], [place] [address] tel:[phone] 0001 - S Diarrhea, May-0 LORD PACO. S Inc, Primary unspecified 9-201 [facility] 119 33-57 Care typeAbdominal pain [address], [facility], [place] pregnancyUnspecifi [place], [place] ed abdominal pain [address]. [place], tel:[phone], [place] [address] tel:[phone] 0001 - S Palpitations Mar-2 LORD PACO. S Inc, Primary 8-201 [facility] [address], [facility], [place], [place] [address]. [place], tel:[phone], [place] [address] tel:[phone] 0001 - S DizzinessPalpitati Freddie-1 LORD PACO. [facility], Primary onsFatigue, 2-201 [facility] 119 33-57 Care unspecified type [address], [facility], [place], [place] [address]. [place], tel:[phone], [place] [address] tel:[phone] 0001 - S Acute sphenoidal Freddie-1 LORD PACO. S Inc, Primary sinusitis, 0-201 [facility] 119 [address] Care unspecified [address], [facility], [place], [place] [address]. [place], tel:[phone], [place] [address] tel:[phone] 0001 - S Acute sphenoidal Nov-2 LORD PACO. S Inc, Primary sinusitis, 9-201 [facility] 119 33[address]oid [address], [facility], [place], [place] [address]. [place], tel:[phone], [place] [address] tel:[phone] 0001 - [facility] Viral URIOther Sep- JOSE MEDINA. S Inc, Primary viral agents as [facility] 119 33-57 Care the cause of 6 [facility] diseases [facility], [place] classified [place], [place] elsewhere [address]. [place], tel:[phone], [place] [address] tel:[phone] 0001 - [facility] Major depressive Jan- LORD ANTONIO. S Inc, Primary disorder, single [facility] 119 33-57 Care episode, 6 [facility], [facility] unspecified [facility], [place], [place] [address]. [place], tel:[phone], [place] [address] tel:[phone] 0001 - [facility] Adult general LORD ANTONIO. [facility] Inc, Primary medical [facility] 119 33-[address] [facility] er for screening [facility] for respiratory [place], [place], [place] tuberculosis [address]. [place], tel:[phone], [place] [address] tel:[phone] 0001 - [facility] Foreign body in LORD ANTONIO. S Inc, Primary skin [facility] 119 33-57 Care 5 [facility], [facility], [facility], [place], [place] [address]. [place], tel:[phone], [place] [address] tel:[phone] 0001 - [facility] Acute pharyngitis [facility] Inc, Walk-In DANVERS. [address] Center 5 [address] [facility], Street, [facility], [address]. [place], tel:[phone], [place] [address] tel:[phone] 0001 - S Disorder, LORD ANTONIO. S Inc, Primary attention deficit [facility] 119 33-57 Care w/o [address] , [facility] hyperactivitySubsc [facility] apularis (muscle) [place], [place] [address]. [place], joint involving tel:[phone], [place] shoulder region [address] tel:[phone] 0001 - S Sinusitis, LORD ANTONIO. Referring [facility], Primary AcuteShoulder 0-201 [facility] 119 Provider: 33-57 Care strain [address], PACO , [facility] [address], [place], [place], [facility], [place] [address]. [place], tel:[phone] [place], [address], [place] [address] [place], [address]. tel:+60 tel:[phone] 0001 - S DepressionDisorder Sep-2 LORD ANTONIO. [facility] Inc, Primary , attention 5-201 [facility] 119 33-57 Care deficit 4 [facility], [facility] w/hyperactivityInf [place], [place] [address]. [place], tel:[phone], [place] [address] tel:[phone] 0001 - S DepressionDisorder Aug-2 LORD ANTONIO. [facility] Inc, Primary , attention 8-201 [facility] 119 33-57 Care deficit 4 [facility], [facility] w/hyperactivityWar [facility], [facility], [place], [place], [place] specified viral [address]. [place], tel:[phone], [place] [address] tel:[phone] 0001 - [facility] Disorder, LORD ANTONIO. [facility] Inc, Primary attention deficit 1-201 [facility] 119 33-57 Care w/o 4 [facility] hyperactivityDepre [facility] ssionValiert [place], [place] [address]. [place], tel:[phone], [place] [address] tel:[phone] 0001 - S Sinusitis, acute JOSE MEDINA. Referring [facility] Inc, Primary 7-201 [facility] PC 119 Provider: 3357 Care [address] [facility] CAROL [facility] SKI, [facility], [place], [place], PC 119 [place] [address]. [facility], [place], tel:[phone] [place] [address], [place] [address] [place], tel:+160 [place], [address]. [phone] tel:[phone] 0001 - S Inguinal Referring [facility] Inc, Walk-In lymphadenopathySki Provider: 33-57 Center n lesion of left 3 WALKIN [address] Omid leg OMID, Street, [address] [place] [address], [place], [address], [address], [place], tel:[phone] [place], [phone]. [phone] 0001 - S Disorder, September-2 LORD PACO. [facility] Inc, Primary attention deficit 3-201 [facility] 119 33-57 Care w/hyperactivityDis 3 [facility], [facility] order, attention [facility], [place] deficit [place], [place] w/hyperactivity [address]. [place], tel:[phone], [place] [address] tel:[phone] 0001 - S Attention deficit May-1 LORD PACO. [facility] Inc, Primary disorder with 0-201 [facility] 119 33-57 Care hyperactivityDisor 3 [facility], [facility] barbara, attention [facility], [place] deficit [place], [place], [place] w/hyperactivity [address]. [place], tel:[phone], [place] [address] tel:[phone] 0001 - S Attention deficit May-0 LORD PACO. S Inc, Primary disorder with 3-201 [facility] 119 33-57 Care hyperactivitySinus 3 [facility], [facility] itis, [facility], [place] AcuteDisorder, [place], [place], [place] attention deficit [address]. [place], w/hyperactivitySin tel:[phone], [place] usitis, Acute [address] tel:[phone] 0001 - [facility] Rhinitis, allergic Apr-2 JOSE MEDINA. Referring [facility] Inc, Primary NOSSinusitis, [facility] PC 119 Provider: 33-57 Care AcuteOtitis 3 [facility] mediaRhinitis, [place] [address], [address], [place] allergic [place], [place], PC 119 Johnny NOSSinusitis, [address]. [facility], [place], [place], AcuteOtitis media tel:[phone] [place] [address], [place] [address] [place], tel:+160 [place], [address]. [phone] tel:[phone] 0001 - S Attention deficit Apr-1 LORD PACO. S Inc, Primary disorder with 9-201 [facility] 119 33-57 Care hyperactivityAtten 3 [facility], [facility] tion deficit [facility] disorder with [place], [place], [place] hyperactivityAtten [address]. [place], tion deficit tel:[phone], [place] disorder with [address] tel:[phone] hyperactivityDisor [phone] barbara, attention deficit w/hyperactivity 0001 - S Disorder, Mar-2 LORD PACO. S Inc, Primary attention deficit 5-201 [facility] 119 33-57 Care w/o 3 [facility], [facility] hyperactivityDisor [facility] barbara, attention [place], [place], [place] deficit w/o [address]. [place], hyperactivity tel:[phone], [place] [address] tel:[phone] 0001 - S Mar-2 LORD PACO. S Inc, Primary 1-201 [facility] 119 33-57 Care 3 [facility], [facility], [place], [place] [address]. [place], tel:[phone], [place] [address] tel:[phone] 0001 - S DepressionDisorder Mar-2 LORD PACO. S Inc, Primary , attention 0-201 [facility] 119 33-57 Care deficit w/o 3 [facility], [facility] hyperactivityDepre [facility] ssionDisorder, [place], [place], [place] attention deficit [address]. [place], w/o hyperactivity tel:[phone], [place] [address] tel:[phone] 0001 - S DepressedDepressio Feb-2 LORD PACO. S Inc, Primary n 8-201 [facility] 119 33-57 Care 3 ig , [facility], [place], [place] [address]. [place], tel:[phone], [place] [address] tel:[phone] 0001 - [facility] Acute lower Dec-1 LORD ANTONIO. [facility] Inc, Primary UTIUrinary Tract 7- [facility] 119 33-57 Care InfectionUrinary 2 [facility], [facility] Tract Infection [facility], [place], [place] [address]. [place], tel:[phone], [place] [address] tel:[phone] 0001 - [facility] Acute lower Aug-0 LORD ANTONIO. Referring [facility], Primary UTIUrinary Tract 3- [facility] 119 Provider: 33-57 Care InfectionUrinary 2 [facility], PACO LORD, [facility] Tract Infection [facility] [address], [place], [place], [facility], [place] [address]. [place], tel:[phone] [facility] [address], [place] [address] [place], [address]. tel:+60 tel:[phone] 0001 - S Contraception Nov- LORD ANTONIO. [facility], Primary managementContrace 3- [facility] 119 33-57 Care ptive management 2 [facility] NOS [facility], [place], [place], [place] [address]. [place], tel:[phone], [place] [address] tel:[phone] 0001 - [facility] Screening for Mar-0 LORD ANTONIO. [facility] Inc, Primary malignant [facility] 119 33-57 Care neoplasm, 2 [facility] cervixScreening [facility] for malignant [place], [place], [place] neoplasm, cervix [address]. [place], tel:[phone], [place] [address] tel:[phone] 0001 - [facility] Check, routine, LORD ANTONIO. [facility], Primary /childCheck, 8- [facility] 119 33-57 Care routine, 2 [facility] infant/child [facility], [place], [place] [address]. [place], tel:[phone], [place] [address] tel:[phone] Family History Family Member Diagnosis Age At Onset Father Hyperlipidemia Maternal grandfather Coronary artery disease Paternal grandmother Leukemia Father Sleep apnea Paternal grandmother Stroke Maternal grandfather Cancer, colon Mother alive and well Immunizations Vaccine Date Status Comments Fluarix Quadrivalent Syringe administered Source: Source Unspecified Payers Payer name Insurance type Covered republican ID Authorization(s) Marianne Patel [id number] Social History Type Description Quantity Date Captured Comments Alcohol Use Details No Caffeine Use Details coffee 1 cup per day Tobacco Use Status Current non-smoker Smoking Status Never smoker Non-Smoking Tobacco : No Details Available : No Details Available 2019 Use Details Vital Signs Date / Height Weight BMI Pulse Blood Temperature Respiratory Body Head BMI Time: Rate Pressure Rate Surface Circumference percentile Area 65.00 160.50 26.7 116 123/97 98.30 F 16 /min 1.83 -2020 in lbs 1 /min mm[Hg] meter(2) 11:07 kg/m AM eter (2) 98 /min 11:44 AM Chief Complaint And Reason For Visit No information Reason For Referral Reason For Referral Unknown Plan Of Care Date Type Action Status Referral Referred To: ordered SUSAN SIN DO [address] [place], [address] [phone] Ordered: Referrals: Neurology. SUSAN SIN DO. Evaluate and treat Referral Ordered: ordered Breast Ultrasound Complete Left breast Referral Ordered: ordered Mammogram Digital Diagnostic unilateral Left breast Referral Ordered: ordered MRI of brain w/o Contrast Appointment date/timeframe: 09/28/2018 Referral Ordered: ordered Holter monitor/24 hrs, complete Appointment date/timeframe: 09/28/2018 Referral Ordered: ordered X-RAY EXAM CHEST 2 VIEWS Appointment date/timeframe: 09/17/2018 Referral Ordered: ordered Echocardiography (with Definity) Appointment date/timeframe: 09/28/2018 Referral Ordered: ordered U/S Transvaginal HOUSEKEEPING SUPERVISOR Appointment date/timeframe: 09/28/2018 Referral Ordered: ordered U/S Renal/Retroperitoneal complete Referral Ordered: ordered U/S Abdomen complete Appointment date/timeframe: 1 Week Referral Ordered: ordered Referrals: Cardiology. Location: [facility] Cardiology. Evaluate and treat Appointment date/timeframe: 09/05/2016 Referral Referred To: ordered VERENICE ALTAMIRANO MD [address] [place], [place], [address] [phone] Ordered: Referrals: Otolaryngology. VERENICE ALTAMIRANO MD. Evaluate and treat Appointment date/timeframe: 07/31/2016 Referral Ordered: ordered . Physical Therapy. Evaluate patient, develop plan and implement plan. Referral Ordered: ordered Xray Spine Thoracic complete Referral Ordered: ordered Xray Shoulder Complete (Must choose side) Left shoulder Date Type Problem Goal Intervention Status Start Date Unknown History Of Present Illness Encounter Date Complaint History Of Present Illness Cough (comments) States that she has an occasional cough, but her chest feels congested. 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 Denies any fevers. States that she is sweating at night. Cold symptoms Onset: 1 day ago. The patient describes the cough as moist. Context: sick family member. Additional information: Exposed to the flu achy and has the chills, sweating at night. Cough Onset: 1 Day. Symptoms are associated with sick family member and exposed to flu. Aggravating factors include cold air and lying down. Functional Status Encounter Date Functional Assessment Cognitive Assessment N/A Orientation - Oriented to time, place, person, situation. Medications Administered Medication Instructions Dosage Effective Dates (start - stop) Status Comments Drug Treatment Unknown Instructions Date Instruction Additional Information Take the Azithromycin 2 pills the Related to URI with cough and first day and 1 pill the following congestion four days. Increase fluids and rest...Cough drops to help with the cough. I will call you with the results of the flu/RSV swab. Take the Azithromycin 2 pills the Related to Acute non-recurrent first day and 1 pill the following sinusitis, unspecified location four days. Increase fluids and rest... Risks and benefits of new medication discussed. use otc product as directed. Related to Viral warts, unspecified type suspect carpal tunel syndrome, Avoid Related to Numbness of left hand repetitive motion with left hand or prolonged use in one position. wear splint at night. PT is and has had left breast Related to Painful lumpy left tenderness prior to her , breast will have left breast ultrasound to rule out cyst vs mass. 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 infarction and without status Today , we will try the Topamax 25mg migrainosus at bedtime and will be referred to Neurology for further evaluation and help with management of these headaches. Pt and I reviewed the echocardiogram Related to Heart palpitations and Holtor monitor with the patient and she will call for any change or worsening of symptoms. PT will complete her course of Related to Cellulitis of left Augmentin twice per day for 10days and breast will call for further needs or concerns. Pt will have her left breast Related to Painful lumpy left ultrasound and mammogram done and will breast keep her appt for next week to review. Pt will start the Augmentin 875mg one Related to Cellulitis of left tablet twice per day for 10 days, call breast for further needs or concerns. PT will have a pelvic ultrasound to Related to Periumbilical abdominal evaluate the cause of the abdominal pain pain. PT will have her labs, Echocardiogram, Related to Heart palpitations 24 hour holtor monitor and the chest xray done, call 911 if palpitations are lasting longer than a few minutes or if you have chest pain. Risks and benefits of new medication Related to Intractable persistent discussed. Pt will continue to stay migraine aura without cerebral well hydrated, she will continue use infarction and without status the cyclobenzaprine at bedtime as migrainosus needed for muscle spasm to see if that helps, she will get her MRI done and will follow up after walsh. Labs ordered for pt. Related to Fatigue, unspecified type Pt will continue the inderal daily for Related to Intractable persistent her headaches and try to increase migraine aura without cerebral water intake. infarction and without status migrainosus Pt will increase the Prozac to 40mg Related to Anxiety per day and will also set up to see a counselor for anxiety . She will call for further needs or concerns. I have ordered labs and will also encourage her to have the mirena removed as there seems to be a direct correlation. Pt will continue to stay hydrated and Related to Intractable persistent will use the inderal LA one per day migraine aura without cerebral every day and will use the imitrex 50 infarction and without status mg at the onset of the migraine and migrainosus repeat in one hour if the migraine has not resolved. Start a multivitamin daily as well. PT will use the zofran one half hour Related to Bilious vomiting with before meals, stay on bland diet, rest nausea and get the labs and ultrasound done when you can. Increase water intake , rest and call Related to Hematuria, unspecified if the symtpoms worsen or fail to type improve. Get lots of rest. Maintain good clear Related to URI with cough and fluid intake to stay well hydrated. congestion Frequent handwashing to prevent spread of germs. Please avoid exposure to tobacco smoke and/or polluted air. nasal saline to help with symptoms. Take Tylenol (acetaminophen) as needed for fever or aches, dosage according to package directions. Please follow-up with your OB or primary care provider within 1 week for recheck, sooner if you develop new or worsening symptoms. Thank you for choosing the [facility]. We hope that you will be feeling better soon.Any condition can change and some diseases may worsen despite proper treatment. Other problems may begin with vague or unusual symptoms and only over time will the problem become more clear, making it possible to arrive at the correct diagnosis. Your visit today is not a substitute for, or an effort to provide complete medical care. In most cases, you should let your primary care doctor check you again. Tell your doctor about any new or lasting problems. If you do not have a primary care provider, you have been given a list today of local providers who are accepting new patients. All x-rays are interpreted by a radiologist, usually within 48 hours. If there is any important difference between the radiologist's interpretation and what you were told today by the provider, you will be notified. If you had cultures done today, results will be available in 72 hours, depending on specimen. PT will continue to keep open Related to Anxiety communcation with her fiance and will call for further needs or concerns. Right kidney ultrasound ordered for Related to Hydronephrosis, right patient . Will follow up afterward. Pt will continue to follow with insurance plan specialist Related to Abdominal pain affecting and will keep her feet elevated when edema occurs. PT will discuss the use of the Related to Anxiety buspirone 7.5mg twice per day or one time each evening to help with her anxiety with her Automatic Cigar Wrapper Tender and her father of baby and will decide as a group what they would like to do. We discussed benefits vs potential risks to her and to the unborn baby. Recheck in 2 weeks, call for further needs or concerns. Post op check.Suture removed , Related to Postop check steristrips applied, patient was instructed how to do it once /week for 3-4 weeks, supplies were provided.Pathology report reviewed with patient Ltauricle from ear percingwas removed Related to Hypertrophic scar , primary closure was done labs ordered, abdominal ultrasound Related to Abdominal pain affecting ordered to rule out cholilithiasis. We will follow up when results are available . PT will stay on a bland,low fat diet. Related to Diarrhea, unspecified type Labs ordered, continue to eat a Related to Fatigue, unspecified healthy diet and stay hydrated. type Pt will stay out of work until Thursday, Related to Dizziness continue the Augmentin for the sinuses and increase the meclizine to three times per day. Rest, and go to the ER for any worsening of symtpoms. labs ordered. Related to Palpitations Increase fluids, rest and take the Related to Acute sphenoidal augmentin 875mg one twice per day for sinusitis, unspecified 10 days. Use the meclizine 25mg at bedtime as needed for dizziness. Call if not improving in the next 2-3 days. 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 Pt will increase fluids, rest and will Related to Acute sphenoidal take the augmentin twice per day for sinusitis, unspecified 10 days and call for further needs or concerns. Drink plenty of fluids, rest stay warm Related to Viral URI .Use an expectorant (mucinex, robitussin, generic guaifenisin). If the symptoms do not improve , you develope yellow or green post nasal drip or fever, Call . Pt will stop the prozac and begin the Related to Major depressive Lexapro one per day and recheck in one disorder, single episode, month, discussed risks vs benefits unspecified with the patient. Risks and benefits of new medication discussed. Patient verbalized understanding Pt will start prozac 20mg one per day Related to Anxiety and will recheck in 2 weeks. Risks and benefits of new medication discussed. Patient verbalized understanding Form completed for patient for work. Related to Adult general medical exam pt will take the Keflex three times Related to Foreign body in skin per day for 10 days , keep the toe clean and dry and soak with epsom salts for 15 minutes twice a day , call if the redness increases or worsens in any way. Your symptoms today appear to be due Related to Acute pharyngitis to a virus, viral infections usually last anywhere from 7 days and resolve on their own without treatment, typical symptoms peak around 3rd/4th day and then resolve quickly following this. Viruses are responsible for the majority of upper respiratory illnesses ("colds") and sore throats. Symptoms include a sore throat & painful swallowing, swollen glands, sneezing, nasal congestion, coughing, low grade fevers, fatigue and sinus pressure/congestion. Things that can help with your symptoms include getting lots of rest and plenty of fluids, tylenol/motrin for pain/fevers per manufactures instructions, Mucinex an expectorant which is available over the counter can help thin out secretions and help with congestion (look for the active ingredent guaifenesin), also warm salt water gargles can help with throat pain. Your rapid strep testing was NEGATIVE today for strep throat. Return if symptoms not improving or follow up with your primary doctor. If symptoms not improving in 48-72 hours you may begin antibiotics. Thank you for choosing the [facility]. We hope that you will be feeling better soon. Any condition can change and some diseases may worsen despite proper treatment. Other problems may begin with vague or unusual symptoms and only over time will the problem become more clear, making it possible to arrive at the correct diagnosis. Your visit today is not a substitute for, or an effort to provide complete medical care. In most cases, you should let your primary care doctor check you again. Tell your doctor about any new or lasting problems. If you do not have a primary care provider, you have been given a list today of local providers who are accepting new patients. All x-rays are interpreted by a radiologist, usually within 48 hours. If there is any important difference between the radiologists interpretation and what you were told today by the provider, you will be notified. If you had cultures done today, the results will be available in 72 hours, depending on the specimen. PT will have shoulder xrays and Related to Subscapularis (muscle) thoracic spine xrays done and will sprain begin physical therapy for the shoulder and subscapularis and will trial flexeril 5mg at bedtime as needed for spasm, if not effective, she may increase to two at bedtime. Pt will continue the strattera, I will Related to Disorder, attention give 40mg capsules at this time and pt deficit w/o hyperactivity will call for further needs or concerns. Rest, ice, gently stretch the shoulder Related to Shoulder strain and call if the symtpoms persist. Increase fluids, rest and use the Related to Sinusitis, Acute zithromax zpack as directed. Call if not improving in the next 2-3 days. Pt will increase her strattera to 18mg Related to Disorder, attention twice a day and will recheck in one deficit w/hyperactivity month, if doing well, we can go to 40mg one a day next month. Pt will continue with her prozac one a Related to Depression day and will call for any further needs or concerns. Common wart was treated today, pt will Related to Wart continue to monitor and call for futher needs or concerns. Pt will restart her Strattera 10mg one Related to Disorder, attention a day for one week then increase to deficit w/hyperactivity two a day and recheck in on e month. Pt will continue the prozac at 20mg Related to Depression one a day and will continue to eat 3 regular meals per day. Pt will return for treatment of the Related to Ravindra campoverde if needed in 4 weeks. Pt will restart the Prozac at 10mg one Related to Depression a day and then increase to two per day for the second week, call for any further needs or concerns. We will see how the prozac goes and Related to Disorder, attention will call for any needs or concerns. deficit w/o hyperactivity Start Stratterra on 12/29 as long as the prozac is going well.
--- OUTSIDE RECORDS SUMMARY | 2019-08-22 05:54 | XMS REPORT | Continuity of Care Document ---
:1995 External Reference #:[id number] Author Name Henry Davis M.D. Address [address] [place] [id number] Care Team Providers Name Role Phone Yodit Curran FNP-C - Nurse Practitioner Care Team Information Ticket Machine Operator [phone] Problems Active Problems Provider Date H/O: section [...] Doc Med RSN No Tbco SCRN Constanza Lambert, [facility] 08/31/2017 Injection PT SCRN Tbco Id as Non User Constanzagena Lambert, [facility] 08/31/2017 Injection PT SCRN Tbco Id as Non User Faiza Devries, [facility] 08/28/2017 Injection Immunizations CPT Code Status Date Vaccine Lot # [id number] Given 07/05/2019 Tetnus, Diptheria Toxoids And Acellular Pertussis, [id number] PT > 7Yrs Old [address] Given 02/21/2019 Influenza Vaccine Quadrivalent Preser/Antibiotic [id number] Free Im Use [id number] Given 11/12/2016 Tetnus, Diptheria Toxoids And Acellular [...] H/L Range Note Date Laboratory test 08/14/2019 [facility] Rupture of Negative [address] [place] [address] Membranes [phone] Urine Culture And 08/02/2019 [facility] Urine Culture SEE RESULT 2, 3 [place] [address] BELOW [phone] Laboratory test 08/02/2019 [facility] Gardnerella/Y SEE RESULT 4, 5 [place] [address] east: Vaginal BELOW [phone] Dna Laboratory test 08/02/2019 [facility] Group B Strep SEE RESULT 6, 7 [place] [address] Culture BELOW [phone] Screen Laboratory test 05/17/2019 [facility] Glucose 1 HR 88 mg/dL Normal 70-160 8, 9 [place] [address] Post Prandial [phone] CBC With No Diff 05/17/2019 [facility] White Blood 11.4 High 3.5-10.8 [place] [address] Count 10^3/uL [phone] Red Blood Count 4.15 10^6/uL Normal 3.70-4.87 Hemoglobin 12.5 g/dL Normal 12.0-16.0 Hematocrit 38 % Normal 35-47 Mean Corpuscular Volume 91 fL Normal 80-97 Mean Corpuscular Hemoglobin 30 pg Normal 27-31 Mean Corpuscular HGB Conc 33 g/dL Normal 31-36 Red Cell Distribution Width 15 % Normal 10-15 Platelet Count 228 10^3/uL Normal 150-450 Mean Platelet Volume 8.8 fL Normal 7.4-10.4 Laboratory 05/17/2019 [facility] Rubella Screen Equivocal Immune 10 [place] [address] IgG [phone] Drug Screen 03/29/2019 [facility] Urine None Detected None 11 [place] [address] Amphetamine Detect Clinic [phone] Screen Urine Barbiturates Screen None Detected None [...] None Detected None Detect GC/Chlamydia Dna 03/29/2019 [facility] Disclaimer (SEE NOTE) [address] [place] [address] [phone] Chlamydia trachomatis [place] Negative Negative Neisseria gonorrhoeae (GC) [place] Negative Negative 1 A NEGATIVE results indicates there is no evidence of membrane rupture. 2 [id number] SEE RESULT BELOW Name: KEATON OTT : [address]: Desiree Daniels MD Acct: [id number] Unit: [id number] AGE: 24 Location: [facility] Re08/02/19 SEX: F Status: REG REF SPEC: [id number] CRISTOBAL: 08/02/19-1331 [facility] DR: Desiree Daniels MD REQ: [id number] RECD: 08/02/19 STATUS: COMP _ SOURCE: URINE SPDESC: ORDERED: Urine Culture COMMENTS: [id number] Urine Source: Random Procedure Result Reported Site Urine Culture Final 08/03/19- 1221 ML No Growth (<1,000 CFU/mL) * ML - Main Lab . END OF REPORT DEPARTMENT OF PATHOLOGY, [address] [place] [address] Noel Heard M.D. Director NIKKIE # [id number] SEE RESULT BELOW Name: KEATON OTT KATHRYN : [address]: Desiree Daniels MD Acct: [id number] Unit: [id number] AGE: 24 Location: [facility] Re08/02/19 SEX: F Status: REG REF SPEC: [id number] CRISTOBAL: 08/02/19-[address] [facility] DR: Desiree Daniels MD REQ: [id number] RECD: 08/02/19 STATUS: COMP _ SOURCE: VAGINAL SPDESC: ORDERED: Christophe,Yeast DNA COMMENTS: [id number] Would you like to order Trichomonas Vaginalis [...] . END OF REPORT DEPARTMENT OF PATHOLOGY, [address] [place] [address] Noel Heard M.D. Director NIKKIE # [id number] 6 [id number] 7 SEE RESULT BELOW Name: KEATON OTT : [address]: Desiree Daniels MD Acct: [id number] Unit: [id number] AGE: 24 Location: [facility] Re08/02/19 SEX: F Status: REG REF SPEC: [id number] CRISTOBAL: 08/02/19-[address]: Desiree Daniels MD REQ: [id number] RECD: 08/02/19 STATUS: COMP _ SOURCE: CER/VAG/RE SPDESC: ORDERED: Grp B Strp Scrn COMMENTS: [id number] QUERIES: Is patient penicillin allergic and/or sensitivities needed? N Provider Requisition # [id number] Procedure Result Reported Site Group B Strep [...] resistant strains have not been recognized. (CLSI X747-C70;p.66) Positive isolates will be saved for one week. Please call the Microbiology Laboratory if further susceptibility testing is needed. * ML - Main Lab . END OF REPORT DEPARTMENT OF PATHOLOGY, [address] [place] [address] Noel Heard M.D. Director [facility] # [id number] 11 [id number] 12 The specimen was tested at the [...] applicable. Procedures Date Code Description Status 08/14/2019 08973 Non-Stress Test Completed 03/29/2019 36573 Echography Uterus Complete Completed Medical Devices Description [...] care for low transverse scar from Shahid Tyler JR, DO previous delivery 03/29/2019 Z36.3 Encounter for screening for Ultrasounds malformations 02/21/2019 Z23 Encounter for immunization Shahid Scott JR, DO 02/21/2019 Z36.9 Encounter for screening, Shahid Scott JR DO unspecified Plan of Treatment Future Appointment(s):09/21/2019 10:40 am - Henry Davis M.D. at [facility]08/22/2019 7:45 am - Kim Haines CNM [place] [facility] R008/29/2019 11:15 am - Carmencita Hodges CNM at [facility]08/22/2019 7:45 am - Henry Davis M.D. at [facility] R105/22/2017 - Desiree Daniels MDZ01.411 Encounter [...] any time.F41.9 Anxiety disorder, unspecifiedComments:Given list of [id number] Headache Functional Status Description No Information Available Mental Status Description No Information Available Referrals Description No Information Available
--- OUTSIDE RECORDS SUMMARY | 2019-08-22 05:54 | XMS REPORT | Continuity of Care Document ---
:1995 External Reference #:[id number] Author Name Aurea Anaya MD (transmitted by agent of provider Karen Otto) Address [address] [place] [address] Care Team Providers Name Role Phone Yodit Curran FNP-C Care Team Information Senior Mobile Developer [phone] Problems Active Problems Provider Date H/O: section [...] CPT Code Status Date Vaccine Lot # [id number] Given 07/05/2019 Tetnus, Diptheria Toxoids And Acellular Pertussis, [id number] PT > 7Yrs Old [address]29 Given 02/21/2019 Influenza Vaccine Quadrivalent Preser/Antibiotic [id number] Free Im Use 44784 Given 11/12/2016 Tetnus, Diptheria Toxoids And Acellular [...] Mass Index) 23.5 kg/m2 Last Menstrual Period 9901608 1 Parity 1 Results Test Acquired Facility Test Result H/L Range Note Date Laboratory test 08/14/2019 [facility] Rupture of Negative [address] [place] [address] Membranes [phone] Urine Culture And 08/02/2019 [facility] Urine Culture SEE RESULT 2, 3 [place] [address] BELOW [phone] Laboratory test 08/02/2019 [facility] Gardnerella/Y SEE RESULT 4, 5 [place] [address] east: Vaginal BELOW [phone] Dna Laboratory test 08/02/2019 [facility] Group B Strep SEE RESULT 6, 7 [place] [address] Culture BELOW [phone] Screen Laboratory test 05/17/2019 [facility] Glucose 1 HR 88 mg/dL Normal 70-160 8, 9 [place] [address] Post Prandial [phone] CBC With No Diff 05/17/2019 [facility] White Blood 11.4 High 3.5-10.8 [place] [address] Count 10^3/uL [phone] Red Blood Count 4.15 10^6/uL Normal 3.70-4.87 Hemoglobin 12.5 g/dL Normal 12.0-16.0 Hematocrit 38 % Normal 35-47 Mean Corpuscular Volume 91 fL Normal 80-97 Mean Corpuscular Hemoglobin 30 pg Normal 27-31 Mean Corpuscular HGB Conc 33 g/dL Normal 31-36 Red Cell Distribution Width 15 % Normal 10-15 Platelet Count 228 10^3/uL Normal 150-450 Mean Platelet Volume 8.8 fL Normal 7.4-10.4 Laboratory 05/17/2019 [facility] Rubella Screen Equivocal Immune 10 [place] [address] IgG [phone] Drug Screen 03/29/2019 [facility] Urine None Detected None [address] [place] [address] Amphetamine Detect Clinic [phone] Screen Urine Barbiturates Screen None Detected None [...] Detected None Detect GC/Chlamydia Dna 03/29/2019 [facility] GCCHL Disclaimer (SEE NOTE) [address] [place] [address] [phone] Chlamydia trachomatis [place] Negative Negative Neisseria gonorrhoeae (GC) [place] Negative Negative 1 A NEGATIVE results indicates there is no evidence of membrane rupture. 2 [id number] 3 SEE RESULT BELOW Name: KEATON OTT : [address]: Desiree Daniels MD Acct: [id number] Unit: [id number] AGE: 24 Location: [facility] Re08/02/19 SEX: F Status: REG REF SPEC: [id number] CRISTOBAL: 08/02/19-[address]: Desiree Daniels MD REQ: [id number] RECD: 08/02/19 STATUS: COMP _ SOURCE: URINE SPDESC: ORDERED: Urine Culture COMMENTS: [id number] Urine Source: Random Procedure Result Reported Site Urine Culture Final 08/03/19- 1221 ML No Growth (<1,000 CFU/mL) * ML - Main Lab . END OF REPORT DEPARTMENT OF PATHOLOGY, [address] [place] [address] Noel Heard M.D. Director [facility] # [id number] 4 [id number] 5 SEE RESULT BELOW Name: KEATON OTT KATHRYN : [address]: Desiree Daniels MD Acct: [id number] Unit: [id number] AGE: 24 Location: [facility] Re08/02/19 SEX: F Status: REG REF SPEC: [id number] CRISTOBAL: 08/02/19-[address]: Desiree Daniels MD REQ: [id number] RECD: 08/02/19 STATUS: COMP _ SOURCE: VAGINAL SPDESC: ORDERED: Christophe,Yeast DNA COMMENTS: [id number] Would you like to order Trichomonas Vaginalis [...] . END OF REPORT DEPARTMENT OF PATHOLOGY, [address] [place] [address] Noel Heard M.D. Director [facility] # [id number] 6 [id number] SEE RESULT BELOW Name: KEATON OTT : [address]: Desiree Daniels MD Acct: [id number] Unit: [id number] AGE: 24 Location: [facility] Re08/02/19 SEX: F Status: REG REF SPEC: [id number] CRISTOBAL: 08/02/19-[address]: Desiree Daniels MD REQ: [id number] RECD: 08/02/19 STATUS: COMP _ SOURCE: ROBERTO/JANUSZ/RE SPDESC: ORDERED: Conrado Lincoln COMMENTS: [id number] QUERIES: Is patient penicillin allergic and/or sensitivities needed? N Provider Requisition # C77#[id number]_ Procedure Result Reported Site Group B Strep [...] resistant strains have not been recognized. (CLSI Q402-S86;p.66) Positive isolates will be saved for one week. Please call the Microbiology Laboratory if further susceptibility testing is needed. * ML - Main Lab . END OF REPORT DEPARTMENT OF PATHOLOGY, [address] [place] [address] Noel Heard M.D. Director [facility] # [id number] 11 [id number] 12 The specimen was tested at the [...] applicable. Procedures Date Code Description Status 03/29/2019 22258 Echography Uterus Complete Completed Medical Devices Description No Information Available Encounters Description No Information Available Assessments Date Code Description Provider 08/12/2019 O34.211 Maternal care for low transverse [...] 9:20 am - Henry Davis M.D. at [facility]09/21/2019 10:40 am - Henry Davis M.D. at [facility]08/22/2019 7: 45 am - [place] [facility] [place]29/[place] 11:15 am - Carmencita Hodges CNM at [facility]08/22/2019 7:45 am - [place] [facility] [place] [id number] - Desiree Daniels, MDZ01.411 Encounter for gynecological examination ( general) [...] any time.F41.9 Anxiety disorder, unspecifiedComments:Given list of [id number] Headache Functional Status Description No Information Available Mental Status Description No Information Available Referrals Description No Information Available
--- OUTSIDE RECORDS SUMMARY | 2019-08-22 05:54 | XMS REPORT | Continuity of Care Document ---
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 [phone] Problems Active Problems Provider Date H/O: section [...] Tbco Id as Non User Faiza Devries, WAN 08/28/2017 Injection Immunizations CPT Code Status Date Vaccine Lot # [id number] Given 07/05/2019 Tetnus, Diptheria Toxoids And Acellular Pertussis, [id number] PT > 7Yrs Old [address] Given 02/21/2019 Influenza Vaccine Quadrivalent Preser/Antibiotic 966083 Free [place] Use 73598 Given 11/12/2016 Tetnus, Diptheria Toxoids And Acellular [...] Mass Index) 23.5 kg/m2 Last Menstrual Period 5859735 1 Parity 1 Results Test Acquired Date Facility Test Result H/L Range Note Laboratory test 08/02/2019 [facility] Gardnerella/Y <pending> [place] [address] east: Vaginal [phone] Dna Laboratory test 08/02/2019 [facility] Genital For <pending> [place] [address] GRP B Strep [phone] Only Laboratory test 05/17/2019 [facility] Glucose 1 HR 88 mg/dL Normal 70-160 1, 2 [place] [address] Post Prandial [phone] CBC With No 05/17/2019 [facility] White Blood 11.4 High 3.5- 10.8 [place] [address] Count 10^3/uL [phone] Red Blood Count 4.15 10^6/uL Normal 3.70-4.87 Hemoglobin 12.5 g/dL Normal 12.0-16.0 Hematocrit 38 % Normal 35-47 Mean Corpuscular Volume 91 fL Normal 80-97 Mean Corpuscular Hemoglobin 30 pg Normal 27-31 Mean Corpuscular HGB Conc 33 g/dL Normal 31-36 Red Cell Distribution Width 15 % Normal 10-15 Platelet Count 228 10^3/uL Normal 150-450 Mean Platelet Volume 8.8 fL Normal 7.4-10.4 Laboratory 05/17/2019 [facility] Rubella Screen Equivocal Immune 3 [place] [address] IgG [phone] Drug Screen 03/29/2019 [facility] Urine None Detected None 4 [place] [address] Amphetamine Detect Clinic [phone] Screen Urine Barbiturates Screen None Detected None [...] None Detected None Detect GC/Chlamydia Dna 03/29/2019 [facility] GCCHL Disclaimer (SEE NOTE) [address] [place] [address] [phone] Chlamydia trachomatis [place] Negative Negative Neisseria gonorrhoeae (GC) [place] Negative Negative 1 [id number] 2 [id number] 3 [id number] 4 [id number] 5 The specimen was tested at the [...] applicable. Procedures Date Code Description Status 03/29/2019 63401 Echography Uterus Complete Completed Medical Devices Description [...] JR, DO unspecified Plan of Treatment Future Appointment(s):09/21/2019 10:40 am - Henry Davis M.D. at [facility]08/22/2019 7:45 am - Kim Haines CNM at [facility] O R008/29/2019 11:15 am - Carmencita Hodges CNM at [facility]08/22/2019 7:45 am - Henry Davis M.D. at [facility] O R008/09/2019 10:30 am - Desiree Daniels MD at [facility]2019 9:00 am - Henry Davis M.D. at [facility]03/22/2018 - Desiree Daniels, Z01.411 Encounter for gynecological examination (general) (routine)New Medication:Lo [...] any time.F41.9 Anxiety disorder, unspecifiedComments:Given list of [id number] Headache Functional Status Description No Information Available Mental Status Description No Information Available Referrals Description No Information Available
--- OUTSIDE RECORDS SUMMARY | 2019-08-22 05:54 | XMS REPORT | Continuity of Care Document ---
:1995 Author Organization 0001 - S [facility] Address [address] [place] [address] Phone Care Team Providers Name Role Phone CAROL GARCIA MD Unavailable Unavailable Allergies, Adverse Reactions, Alerts [...] for malignant neoplasm, - cervix Check, routine, infant/child - Attention deficit disorder with - Chronic hyperactivity Attention deficit disorder with - Chronic hyperactivity Check, routine, /child Routine Procedures Procedure Date Procedure Unknown Results Test Name Date and Time Measure Units Reference Range Abnormal Flag Status Comments Unknown Encounters Encounter Practice Location Reason(s) Diagnoses Date Provider Providers Description For Visit Copied on Encounter 0001 - [facility] JOSE MEDINA. [employer], Primary [facility] PC 119 33-57 Care 0 [facility], [place], [place], [place] [address]. [place], tel:[phone], [place] [address] tel:[phone] 0001 - [facility] URI with cough and [facility], Primary congestionAcute ZAHRA. 119 33-57 Care non-recurrent 0 [facility] unspecified General acute hospital locationExposure [address]. [place], to the flu tel:[phone], [place] [address] tel:[phone] 0001 - [facility] Viral warts, [place] [employer], Walk-In unspecified [place]. 33-57 Center typeNumbness of 9 [facility] [place], [place], [place], [address]. [address], [place] tel:[phone] tel:[phone] 0001 - S Painful lumpy left LORD PACO. [employer], Primary breastUnspecified [facility] 119 33-57 Care lump in the left [address], [facility] breast, [facility], [place] unspecified [place], [place] quadrant [address]. [place], tel:[phone], [place] [address] tel:[phone] 0001 - S Todd-2 LORD PACO. S Inc, Primary 2-201 [facility] 119 33-57 Care 9 [facility], [facility], [place], [place] [address]. [place], tel:[phone], [place] [address] tel:[phone] 0001 - S Encounter for Champ- LORD PACO. S Inc, Primary screening for 2-201 [facility] 119 33-57 Care respiratory 9 [facility] tuberculosis [facility], [facility], [place], [place] [address]. [place], tel:[phone], [place] [address] tel:[phone] 0001 - S Cellulitis of left Champ-0 LORD PACO. S Inc, Primary breastHeart 4-201 [facility] 119 33-57 Care palpitationsIntrac 9 [facility] table persistent [facility] migraine aura [place], [place] without cerebral [address]. [place], infarction and tel:[phone], [place] without status [address] tel:[phone] migrainosusEncount [phone] er for screening for respiratory tuberculosis 0001 - S Painful lumpy left September-2 LORD PACO. S Inc, Primary breastUnspecified 8-201 [facility] 119 33-57 Care lump in the left 9 [facility], [facility] breast, [facility], [place] unspecified [place], [place] quadrantCellulitis [address]. [place], of left tel:[phone], [place] breastUnspecified [address] tel:[phone] lump in the left [phone] breast, upper outer quadrant 0001 - [facility] Intractable May-0 LORD PACO. S Inc, Primary persistent 1-201 [facility] 119 33-57 Care migraine aura 9 [facility] without cerebral [facility] infarction and [place], [place] without status [address]. [place], migrainosusFatigue tel:[phone], [place] , unspecified [address] tel:[phone] typeHeart [phone] palpitationsPerium bilical abdominal pain 0001 - S AnxietyIntractable Feb-0 LORD LEGER S Inc, Primary persistent 2-201 SP 119 33-57 Care migraine aura 8 [facility] without cerebral [facility] infarction and General acute hospital without status [address]. [place], migrainosusEncount tel:[phone], [place] er for screening [address] tel:[phone] for respiratory [phone] tuberculosis 0001 - S Intractable LORD LEGER S Inc, Primary persistent 6-201 SP 119 33-57 Care migraine aura 8 [facility] without cerebral [facility] infarction and General acute hospital without status [address]. [place], migrainosus tel:[phone], [place] [address] tel:[phone] 0001 - S Hematuria, LORD LEGER S Inc, Primary unspecified 6-201 SP 119 33-57 Care typeBilious 8 [facility] vomiting with [facility] nausea [place], [place] [address]. [place], tel:[phone], [place] [address] tel:[phone] 0001 - S URI with cough and ANGIE S Inc, Walk-In congestionAcute JEFFRY. [address]57 Center pharyngitis, [address] [place] [address] unspecifiedCntct w [facility], Street, and expsr to [facility] [place], [address]. [place], smoke (acute) tel:[phone], [place] (chronic) [address] tel:+60 state, incidental [phone] 0001 - S Abdominal pain LORD LEGER S Inc, Primary affecting 4-201 [facility] 119 33-57 Care pregnancyHydroneph 7 [facility] rosis, [facility], [place] rightAnxiety [place], [place] [address]. [place], tel:[phone], [place] [address] tel:[phone] 0001 - S Anxiety Champ-2 PACO. S Inc, Primary 8-201 [facility] 119 33-57 Care 7 [place], [place] [address]. [place], tel:[phone], [place] [address] tel:[phone] 0001 - S Postop September-2 FELY ALVINO. S Inc, ENT/Facia checkEncounter for 30 Deuce 33-57 l Plastic removal of [address], [address] [facility] suturesCntct w and 355, [facility], [facility] to [place], [place] tobacco smoke [address]. [place], (acute) (chronic) tel:[phone], [place] [address] tel:[phone] 0001 - S Hypertrophic scar September- FELY ALVINO. [facility] Inc, ENT/Facia 30 Deuce 33-[address] [facility], [facility], [place], [place] [address]. [place], tel:[phone], [place] [address] tel:[phone] 0001 - S Diarrhea, May-0 LORD PACO. S Inc, Primary unspecified [facility] 119 33-57 Care typeAbdominal pain 7 [facility], [place] pregnancyUnspecifi [place], [place] ed abdominal pain [address]. [place], tel:[phone], [place] [address] tel:[phone] 0001 - S Palpitations Mar-2 LORD PACO. S Inc, Primary 8-201 [facility] 119 33-57 Care 7 [place], [place] [address]. [place], tel:[phone], [place] [address] tel:[phone] 0001 - S DizzinessPalpitati May- LORD ANTONIO. S Inc, Primary onsFatigue, 2- [facility] 119 33-57 Care unspecified type [address], [facility], [place], [place] [address]. [place], tel:[phone], [place] [address] tel:[phone] 0001 - [facility] Acute sphenoidal Freddie- LORD PACO. S Inc, Primary sinusitis, 0-201 [facility] 119 33-[address], [facility], [place], [place] [address]. [place], tel:[phone], [place] [address] tel:[phone] 0001 - S Acute sphenoidal Mar-2 PACO. S Inc, Primary sinusitis, 9-201 [facility] 119 33-[address], [facility] of skin [facility], [place], [place] [address]. [place], tel:[phone], [place] [address] tel:[phone] 0001 - [facility] Viral URIOther Sep-2 JOSE MEDINA. S Inc, Primary viral agents as 8-201 [facility] 119 33-57 Care the cause of 6 [facility] diseases [facility], [place], [place] elsewhere [address]. [place], tel:[phone], [place] [address] tel:[phone] 0001 - S Major depressive Sep-1 LORD ANTONIO. S Inc, Primary disorder, single 6-201 [facility] 119 33-57 Care episode, 6 [facility], [facility] unspecified [facility], [place], [place] [address]. [place], tel:[phone], [place] [address] tel:[phone] 0001 - S Adult general Nov- LORD ANTONIO. S Inc, Primary medical 5-201 [facility] 119 33-57 Care examAnxietyEncount 6 [facility] er for screening [facility] for respiratory [place], [place] tuberculosis [address]. [place], tel:[phone], [place] [address] tel:[phone] 0001 - S Foreign body in LORD ANTONIO. S Inc, Primary skin 1-201 [facility] 119 33-[address], [facility], [place], [place] [address]. [place], tel:[phone], [place] [address] tel:[phone] 0001 - S Acute pharyngitis [facility] Inc, Walk-In - CHRISTOPHER. 33-57 Center 5 [address] [facility], Street, [facility], [address]. [place], tel:[phone], [place] [address] tel:[phone] 0001 - S Disorder, LORD ANTONIO. S Inc, Primary attention deficit 7-201 [facility] 119 33-57 Care w/o [facility], [facility] hyperactivitySubsc [facility] apularis (muscle) [place], [place] [address]. [place], joint involving tel:[phone], [place] shoulder region [address] tel:[phone] 0001 - S Sinusitis, LORD LEGER Referring S Inc, Primary AcuteShoulder 0-201 [facility] 119 Provider: 33-57 Care strain [address] [facility] [address], PACO CARRANZA, [address], [place], [facility] [address]. [place], tel:[phone] [facility] [address], [place] [address] [place], [address]. tel:+60 tel:[phone] 0001 - S DepressionDisorder LORD ANTONIO. S Inc, Primary , attention 5-201 [facility] 119 33-57 Care deficit 4 [facility] w/hyperactivityInf [facility] luenza Vacc[place], [place] [address]. [place], tel:[phone], [place] [address] tel:[phone] 0001 - S DepressionDisorder LORD ANTONIO. S Inc, Primary , attention 8-201 [facility] 119 33-57 Care deficit [address], [facility] w/hyperactivityWar [facility], [place] tWarts, other [place], [place] specified viral [address]. [place], tel:[phone], [place] [address] tel:[phone] 0001 - S Disorder, PACO. [facility] Inc, Primary attention deficit 1-201 [facility] 119 33-57 Care w/o 4 [facility], [facility] hyperactivityDepre [facility], [place] ssionWart [place], [place] [address]. [place], tel:[phone], [place] [address] tel:[phone] 0001 - [facility] Sinusitis, acute [facility]. Referring [facility], Primary 7- [facility] PC 119 Provider: -[address] [place] [address] [facility], [facility] Street, [place], PC 119 [place] [address]. [facility], [place], tel:[phone] [place] [address], [place] [address] [place], tel:+[phone] [place], [address]. [address] tel:[phone] 0001 - S Inguinal Referring [facility], Walk-In lymphadenopathySki Provider: 33 Center n lesion of left 3 WALK[facility] leg [facility], Street, [address] [place], [place], [address], [address], [place] O[place], tel:[phone] [place], [phone]. [phone] 0001 - S Disorder, LORD PACO. [facility] Inc, Primary attention deficit 3-201 [facility] 119 33-57 Care w/hyperactivityDis 3 [facility], [facility] order, attention [facility], [place] deficit [place], [place] w/hyperactivity [address]. [place], tel:[phone], [place] [address] tel:[phone] 0001 - [facility] Attention deficit September-1 PACO. [facility] Inc, Primary disorder with 0-201 [facility] 119 33-57 Care hyperactivityDisor 3 [facility], [facility] barbara, attention [facility], [place] deficit [place], [place] w/hyperactivity [address]. [place], tel:[phone], [place] [address] tel:[phone] 0001 - [facility] Attention deficit May-0 LORD PACO. [facility] Inc, Primary disorder with 3-201 [facility] 119 33-57 Care hyperactivitySinus 3 [facility] itis, [facility], [place] AcuteDisorder, [place], [place] attention deficit [address]. [place], w/hyperactivitySin tel:[phone], [place] usitis, Acute [address] tel:[phone] 0001 - [facility] Rhinitis, allergic Apr-2 [facility]. Referring [facility] Inc, Primary NOSSinusitis, [facility] PC 119 Provider: 33-57 Care AcuteOtitis [address] [place] [address] mediaRhinitis, [facility], [facility], [place] allergic [place], PC 119 Johnny NOSSinusitis, [address]. [facility], [place], AcuteOtitis media tel:[phone] [place] [address], [place] N[place] [address] [place], tel:+[phone] [place], [address]. [phone] tel:[phone] 0001 - [facility] Attention deficit Apr-1 LORD PACO. S Inc, Primary disorder with SPC 119 33-57 Care hyperactivityAtten 3 [facility] tion deficit [facility] disorder with [place], [place] hyperactivityAtten [address]. [place], tion deficit tel:[phone], [place] disorder with [address] tel:+60 hyperactivityDisor [phone] barbara, attention deficit w/hyperactivity 0001 - [facility] Disorder, Mar-2 LORD PACO. [facility] Inc, Primary attention deficit 5-201 SP 119 33-57 Care w/o [address] [place] [address] hyperactivityDisor [facility] barbara, attention [place], [place], [place] deficit w/o [address]. [place], hyperactivity tel:[phone], [place] [address] tel:[phone] 0001 - S Mar-2 LORD PACO. [facility] Inc, Primary -201 [facility] 119 33-[address], [facility], [place], [place] [address]. [place], tel:[phone], [place] [address] tel:[phone] 0001 - S DepressionDisorder Mar-2 LORD ANTONIO. S Inc, Primary , attention 0-201 [facility] 119 33-57 Care deficit w/o 3 [facility], [facility] hyperactivityDepre [facility] ssionDisorder, [place], [place] attention deficit [address]. [place], w/o hyperactivity tel:[phone], [place] [address] tel:[phone] 0001 - S DepressedDepressio Fe- LORD ANTONIO. [facility] Inc, Primary n 8-201 [facility] 119 33-57 Care 3 [facility], [facility], [place], [place] [address]. [place], tel:[phone], [place] [address] tel:[phone] 0001 - S Acute lower Dec-1 LORD ANTONIO. S Inc, Primary UTIUrinary Tract 7-201 [facility] 119 33-57 Care InfectionUrinary 2 [facility] Tract Infection [facility], [place], [place] [address]. [place], tel:[phone], [place] [address] tel:[phone] 0001 - S Acute lower Aug-0 LORD ANTONIO. Referring [facility], Primary UTIUrinary Tract 3-201 [facility] 119 Provider: 33-57 Care InfectionUrinary 2 [facility], PACO CARRANZA, [facility] Tract Infection [facility] [address], [place], [facility], [place] [address]. [place], tel:[phone] [facility] [address], [place] [address] [place], [address]. tel:+60 tel:[phone] 0001 - S Contraception Todd- LORD ANTONIO. S Inc, Primary managementContrace 3-201 [facility] 119 33-57 Care ptive management 2 [facility], [facility] NOS [facility], [place], [place] [address]. [place], tel:[phone], [place] [address] tel:[phone] 0001 - [facility] Screening for Mar-0 LORD PACO. S Inc, Primary malignant 7-201 [facility] 119 33-57 Care neoplasm, 2 [facility], [facility] cervixScreening [facility] for malignant [place], [place] neoplasm, cervix [address]. [place], tel:[phone], [place] [address] tel:[phone] 0001 - [facility] Check, routine, Jun- LORD PACO. [facility] Inc, Primary /childCheck, 8-201 [facility] 119 33-57 Care routine, 2 [facility], [facility] infant/[place], [place] [address]. [place], tel:[phone], [place] [address] tel:[phone] Family History Family Member Diagnosis Age At Onset Father Hyperlipidemia Maternal grandfather Coronary artery disease Paternal grandmother Leukemia Father Sleep apnea Paternal grandmother Stroke Maternal grandfather Cancer, colon Mother alive and well Immunizations Vaccine Date Status Comments Fluarix Quadrivalent Syringe administered Source: Source Unspecified Payers Payer name Insurance type Covered constitution party ID Authorization(s) Marianne Patel [id number] Social History Type Description Quantity Date Captured Comments Alcohol Use Details Unknown Caffeine Use Details Unknown Tobacco Use Status Unknown Smoking Status Unknown Vital Signs Date / Height Weight BMI Pulse Blood Temperature Respiratory Body Head BMI Time: Rate Pressure Rate Surface Circumference percentile Area Unknown Chief Complaint And Reason For Visit No information Reason For Referral Reason For Referral Unknown Plan Of Care Date Type Action Status Referral Referred To: ordered SUSAN SIN DO [address] [place], [phone] Ordered: Referrals: Neurology. SUSAN SIN DO. Evaluate and treat Referral Ordered: ordered Breast Ultrasound Complete Left breast Referral Ordered: ordered Mammogram Digital Diagnostic unilateral Left breast Referral Ordered: ordered X-RAY EXAM CHEST 2 VIEWS Appointment date/timeframe: 09/17/2018 Referral Ordered: ordered MRI of brain w/o Contrast Appointment date/timeframe: 09/28/2018 Referral Ordered: ordered Echocardiography (with Definity) Appointment date/timeframe: 09/28/2018 Referral Ordered: ordered Holter monitor/24 hrs, complete Appointment date/timeframe: 09/28/2018 Referral Ordered: ordered U/S Transvaginal JOINT FINISHER Appointment date/timeframe: 09/28/2018 Referral Ordered: ordered U/S Renal/Retroperitoneal complete Referral Ordered: ordered U/S Abdomen complete Appointment date/timeframe: 1 Week Referral Ordered: ordered Referrals: Cardiology. Location: [facility] Cardiology. Evaluate and treat Appointment date/timeframe: 09/05/2016 Referral Referred To: ordered VERENICE ALTAMIRANO MD [address] [place] [address] [place], [address] [phone] Ordered: Referrals: Otolaryngology. VERENICE ALTAMIRANO MD. Evaluate and treat Appointment date/timeframe: 07/31/2016 Referral Ordered: ordered . Physical Therapy. Evaluate patient, develop plan and implement plan. Referral Ordered: ordered Xray Spine Thoracic complete Referral Ordered: ordered Xray Shoulder Complete (Must choose side) Left shoulder Date Type Problem Goal Intervention Status Start Date Unknown History Of Present Illness Encounter Date Complaint History Of Present Illness No information Functional Status Encounter Date Functional Assessment Cognitive Assessment Unknown Medications Administered Medication Instructions Dosage Effective Dates [...] worsening symptoms. Thank you for choosing the [facility] Walk In. We hope that you will [...] afterward. 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 PT will discuss the use of the Related to Anxiety buspirone 7.5mg twice per day or one time each evening to help with her anxiety with her Caser and her father of baby and will [...] the next 2-3 days. Pt will increase fluids, rest and will Related to Acute sphenoidal take the augmentin twice per day for sinusitis, unspecified 10 days and call for further needs or concerns. 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 Drink plenty of fluids, rest stay warm [...] begin antibiotics. Thank you for choosing the [facility] Walk Ins. We hope that you will [...] return for treatment of the Related to Wart wart if needed in 4 weeks. Pt will [...]
--- OUTSIDE RECORDS SUMMARY | 2019-08-22 05:54 | XMS REPORT | Continuity of Care Document ---
:1995 Author Organization 0001 - [facility] Address [address] [place] [address] Phone Care Team Providers Name Role Phone [...] For Visit Copied on Encounter 0001 - S JOSE MEDINA. [employer], Primary [facility] 119 33-57 Care 0 [facility], [place], [place] [address]. [place], tel:[phone], [place] [address] tel:[phone] 0001 - Lab Drop [employer], - [facility] [place] [address] [address] [place] [address], [facility] [address]. [place], tel:[phone], [place] [address] tel:[phone] 0001 - S URI with cough and [employer], Primary congestionAcute [facility] 119 33-57 Care non-recurrent 0 [facility] unspecified [facility] locationExposure [address]. [place], to the flu tel:[phone], [place] [address] tel:[phone] 0001 - [facility] Viral warts, CONSOLAZIO [employer], Walk-In unspecified [place]. 33-57 Center typeNumbness of [address] [place] [address], [place], [place], [place], [address]. [address], [place] tel:[phone] tel:[phone] 0001 - S Painful lumpy left Aug-0 LORD PACO. [facility] Inc, Primary breastUnspecified 6-201 [facility] 119 33-57 Care lump in the left 9 [facility], [facility], [place] unspecified [place], [place] quadrant [address]. [place], tel:[phone], [place] [address] tel:[phone] 0001 - S Todd-2 LORD PACO. [facility] Inc, Primary 2-201 [facility] 119 33[address] [place] [address], [place], [place] [address]. [place], tel:[phone], [place] [address] tel:[phone] 0001 - [facility] Encounter for Champ- LORD PACO. [facility] Inc, Primary screening for 2-201 [facility] 119 33-57 Care respiratory 9 [facility] tuberculosis [facility], [facility], [place], [place] [address]. [place], tel:[phone], [place] [address] tel:[phone] 0001 - [facility] Cellulitis of left Champ-0 LORD PACO. [facility] Inc, Primary breastHeart 4-201 [facility] 119 33-57 Care palpitationsIntrac 9 [facility] table persistent [facility], [place] migraine aura [place], [place] without cerebral [address]. [place], infarction and tel:[phone], [place] without status [address] tel:[phone] migrainosusEncount [phone] er for screening for respiratory tuberculosis 0001 - [facility] Painful lumpy left September-2 LORD PACO. [facility] Inc, Primary breastUnspecified 8-201 [facility] 119 33-57 Care lump in the left 9 [facility], [facility], [place] unspecified [place], [place] quadrantCellulitis [address]. [place], of left tel:[phone], [place] breastUnspecified [address] tel:[phone] lump in the left [phone] breast, upper outer quadrant 0001 - [facility] Intractable September-0 LORD PACO. S Inc, Primary persistent 1-201 [facility] 119 33-57 Care migraine aura 9 [facility] without cerebral [facility], [place] infarction and [facility] without status [address]. [place], migrainosusFatigue tel:[phone], [place] , unspecified [address] tel:60 typeHeart [phone] palpitationsPerium bilical abdominal pain 0001 - S AnxietyIntractable LORD PACO. S Inc, Primary persistent 2-201 [facility] 119 33-57 Care migraine aura 8 [facility] without cerebral [facility], [place] infarction and [facility] without status [address]. [place], migrainosusEncount tel:[phone], [place] er for screening [address] tel:[phone] for respiratory [phone] tuberculosis 0001 - [facility] Intractable LORD PAOC. S Inc, Primary persistent 6-201 [facility] 119 33-57 Care migraine aura 8 [facility] without cerebral [facility], [place] infarction and [facility] without status [address]. [place], migrainosus tel:[phone], [place] [address] tel:[phone] 0001 - S Hematuria, LORD PACO. S Inc, Primary unspecified 6-201 [facility] 119 33-57 Care typeBilious 8 [facility] vomiting with [facility], [place] nausea [facility] [address]. [place], [place], tel:[phone], [place] [address] tel:[phone] 0001 - S URI with cough and ANGIE S Inc, Walk-In congestionAcute - JEFFRY. [address] 33[address]57 Center pharyngitis, 7 [facility] [place] unspecifiedCntct w SWIC, Street, and expsr to [facility] [place], [address]. [place], smoke (acute) tel:[phone], [place] (chronic) [address] tel:+60 state, incidental [phone] 0001 - S Abdominal pain Todd-2 LORD PACO. S Inc, Primary affecting [facility] 119 33-57 Care pregnancyHydroneph 7 [facility], [facility] ros, [facility], [place] rightAnxiety [place], [place] [address]. [place], tel:[phone], [place] [address] tel:[phone] 0001 - S Anxiety Champ-2 LORD PACO. S Inc, Primary 8- [facility] 119 33-57 Care 7 [facility], [facility], [place], [place] [address]. [place], tel:[phone], [place] [address] tel:[phone] 0001 - S Postop September-2 FELY ALVINO. [facility] Inc, ENT/Facia checkEncounter for 30 [place] 33-57 l Plastic removal of 7 St, [facility] [place] [facility] suturesCntct w and 355, [facility], expsr to environ [facility], [facility] tobacco smoke [address]. [place], (acute) (chronic) tel:[phone], [place] [address] tel:[phone] 0001 - S Hypertrophic scar September-1 FELY ALVINO. [facility] Inc, ENT/Facia 30 [place] 33-[address], [facility] [place] [facility], [facility], [place], [place] [address]. [place], tel:[phone], [place] [address] tel:[phone] 0001 - S Diarrhea, May-0 LORD PACO. S Inc, Primary unspecified [facility] 119 33-57 Care typeAbdominal pain 7 [facility], [facility] affecting [facility], [place] pregnancyUnspecifi [place], [place] ed abdominal pain [address]. [place], tel:[phone], [place] [address] tel:[phone] 0001 - S Palpitations Mar-2 LORD PACO. S Inc, Primary 8- [facility] 119 33-57 Care 7 [facility], [place], [place] [address]. [place], tel:[phone], [place] [address] tel:[phone] 0001 - S DizzinessPalpitati May- LORD ANTONIO. S Inc, Primary onsFatigue, 2-201 [facility] 119 33-57 Care unspecified type [address], [facility], [place], [place] [address]. [place], tel:[phone], [place] [address] tel:[phone] 0001 - S Acute sphenoidal May- LORD ANTONIO. S Inc, Primary sinusitis, 0-201 [facility] 119 33-57 Care unspecified [address], [facility], [place], [place] [address]. [place], tel:[phone], [place] [address] tel:[phone] 0001 - S Acute sphenoidal Mar-2 LORD ANTONIO. S Inc, Primary sinusitis, 9-201 [facility] 119 33-57 Care unspecifiedKeloid [address], [facility] [place], [place] [address]. [place], tel:[phone], [place] [address] tel:[phone] 0001 - [facility] Viral URIOther Sep-2 JOSE MEDINA. S Inc, Primary viral agents as 8-[address] [facility] 119 33-57 Care the cause of [address] [facility] diseases [facility], [place], [place], [place] elsewhere [address]. [place], tel:[phone], [place] [address] tel:[phone] 0001 - S Major depressive Sep-1 LORD ANTONIO. S Inc, Primary disorder, single 6-201 [facility] 119 33-57 Care episode, [address], [facility] unspecified [facility], [place], [place] [address]. [place], tel:[phone], [place] [address] tel:[phone] 0001 - S Adult general Nov-2 LORD ANTONIO. S Inc, Primary medical 5-201 [facility] 119 33-57 Care examAnxietyEncount 6 [facility], [facility] er for screening [facility] for respiratory [place], [place] tuberculosis [address]. [place], tel:[phone], [place] [address] tel:[phone] 0001 - S Foreign body in LORD ANTONIO. S Inc, Primary skin [facility] 119 33-[address], [facility], [place], [place] [address]. [place], tel:[phone], [place] [address] tel:[phone] 0001 - S Acute pharyngitis [place]STEIN [facility] Inc, Walk-In CHRISTOPHER. 33-[address] Center [address] [place] [address], Street, [facility], [address]. [place], tel:[phone], [place] [address] tel:[phone] 0001 - S Disorder, LORD ANTONIO. S Inc, Primary attention deficit - [facility] 119 33-57 Care w/o 4 [facility], [facility] hyperactivitySubsc [facility] apularis (muscle) [place], [place] [address]. [place], joint involving tel:[phone], [place] shoulder region [address] tel:[phone] 0001 - S Sinusitis, LORD ANTONIO. Referring [facility] Inc, Primary AcuteShoulder 0-201 [facility] 119 Provider: 33-57 Care strain [address] [facility] [address], PACO CARRANZA, [facility] [address], [place], [facility], [place] [address]. [place], tel:[phone] [place], [address], [place] [address] [place], [address]. tel:+60 tel:[phone] 0001 - S DepressionDisorder Jan- LORD ANTONIO. S Inc, Primary , attention 5-201 [facility] 119 33-57 Care deficit 4 [facility], [facility] w/hyperactivityInf [facility] luenza Vaccine [place], [place] [address]. [place], tel:[phone], [place] [address] tel:[phone] 0001 - S DepressionDisorder LORD ANTONIO. S Inc, Primary , attention [facility] 119 33-57 Care deficit 4 [facility], [facility] w/hyperactivityWar [facility], [place] tWarts, other [place], [place] specified viral [address]. [place], tel:[phone], [place] [address] tel:[phone] 0001 - S Disorder, LORD ANTONIO. [facility] Inc, Primary attention deficit [facility] 119 33-57 Care w/o 4 [facility], [facility] hyperactivityDepre [facility], [place] ssionFountaint [place], [place] [address]. [place], tel:[phone], [place] [address] tel:[phone] 0001 - S Sinusitis, acute JOSE MEDINA. Referring [facility] Inc, Primary [facility] PC 119 Provider: 33-[address] [place], [place] [address]CAROL [facility], [facility], [place], [place], PC 119 [place] [address]. [facility], [place], [place], tel:[phone] [place] [address], [place] [address] [place], tel:+[phone] [place], [address]. [id number] tel:[phone] 0001 - S Inguinal Referring [facility], Walk-In lymphadenopathySki Provider: 33-57 Center n lesion of left 3 WALKIN [place] O[place] leg OMID, Street, [address] [place], [place], [address], [address], [place], tel:[phone] [place], [phone]. [phone] 0001 - S Disorder, LORD ANTONIO. S Inc, Primary attention deficit [facility] 119 33-57 Care w/hyperactivityDis 3 [facility], [facility] order, attention [facility], [place] deficit [place], [place] w/hyperactivity [address]. [place], tel:[phone], [place] [address] tel:[phone] 0001 - [facility] Attention deficit May-1 LORD PACO. [facility] Inc, Primary disorder with 0-201 [facility] 119 33-57 Care hyperactivityDisor 3 [facility], [facility] barbara, attention [facility], [place] deficit [place], [place] w/hyperactivity [address]. [place], tel:[phone], [place] [address] tel:[phone] 0001 - S Attention deficit May-0 LORD PACO. [facility] Inc, Primary disorder with 3-201 [facility] 119 33-57 Care hyperactivitySinus 3 [facility], [facility] itis, [facility], [place] AcuteDisorder, [place], [place] attention deficit [address]. [place], w/hyperactivitySin tel:[phone], [place] usitis, Acute [address] tel:[phone] 0001 - [facility] Rhinitis, allergic Apr-2 SAIMA CAROL. Referring [facility], Primary NOSSinusitis, 9- [facility] PC 119 Provider: 33-[address] Care AcuteOtitis [address] [place] [address] mediaRhinitis, [facility], [facility] Street, [place] allergic [place], [place], PC 119 Johnny NOSSinusitis, [address]. [facility], [place], [place], AcuteOtitis media tel:[phone] [place] [address], [place] [address] [place], tel:[phone] [place], [address]. [phone] tel:[phone] 0001 - [facility] Attention deficit Apr-1 LORD PACO. [facility] Inc, Primary disorder with 9-201 [facility] 119 33-57 Care hyperactivityAtten 3 [facility], [facility] tion deficit [facility], [place] disorder with [place], [place] hyperactivityAtten [address]. [place], tion deficit tel:[phone], [place] disorder with [address] tel:[phone] hyperactivityDisor [phone] barbara, attention deficit w/hyperactivity 0001 - [facility] Disorder, Mar-2 LORD PACO. [facility] Inc, Primary attention deficit 5-201 [facility] 119 33-57 Care w/o 3 [facility], [facility] hyperactivityDisor [facility] barbara, attention [place], [place], [place] deficit w/o [address]. [place], hyperactivity tel:[phone], [place] [address] tel:[phone] 0001 - S Mar-2 LORD ANTONIO. S Inc, Primary 1-201 [facility] 119 33-57 Care [address] [facility] [address], [facility], [place], [place] [address]. [place], tel:[phone], [place] [address] tel:[phone] 0001 - S DepressionDisorder Jul-2 LORD ANTONIO. S Inc, Primary , attention 0-201 [facility] 119 33-57 Care deficit w/o 3 [facility], [facility] hyperactivityDepre [facility] ssionDisorder, [place], [place] attention deficit [address]. [place], w/o hyperactivity tel:[phone], [place] [address] tel:[phone] 0001 - S DepressedDepressio Jun- LORD ANTONIO. S Inc, Primary n 8-201 [facility] 119 33-57 Care 3 [facility], [facility], [place], [place] [address]. [place], tel:[phone], [place] [address] tel:[phone] 0001 - S Acute lower Aug-1 LORD ANTONIO. [facility] Inc, Primary UTIUrinary Tract 7-201 [place] [address] 33-57 Care InfectionUrinary 2 [facility], [facility] Tract Infection [facility], [place], [place] [address]. [place], tel:[phone], [place] [address] tel:[phone] 0001 - S Acute lower Aug-0 LORD ANTONIO. Referring [facility] Inc, Primary UTIUrinary Tract 3-201 [facility] 119 Provider: 33-57 Care InfectionUrinary 2 [facility], PACO CARRANZA, [facility] Tract Infection [facility] 119 [place], [place], [place], [address], [place] [address]. [place], tel:[phone] [facility] [address], [place] [address] [place], [address]. tel:+60 tel:[phone] 0001 - S Contraception LORD ANTONIO. [facility], Primary managementContrace 3- [facility] 119 33-57 Care ptive management 2 [facility] NOS [facility], [place], [place] [address]. [place], tel:[phone], [place] [address] tel:[phone] 2019 - [facility] Screening for Mar-0 LORD ANTONIO. [employer] Inc, Primary malignant 7- [facility] 119 33-57 Care neoplasm, 2 [facility] cervixScreening [facility] for malignant [place], [place] neoplasm, cervix [address]. [place], [place], tel:[phone], [place] [address] tel:[phone] 2019 - [facility] Check, routine, LORD ANTONIOAbrahan [employer] Inc, Primary /childCheck, 8 [facility] 119 33-57 Care routine, 2 [facility] infant/child [facility], [place], [place] [address]. [place], tel:[phone], [place] [address] tel:[phone] Family History Family Member Diagnosis Age At Onset Father Hyperlipidemia Maternal grandfather Coronary artery disease Paternal grandmother Leukemia Father Sleep apnea Paternal grandmother Stroke Maternal grandfather Cancer, colon Mother alive and well Immunizations Vaccine Date Status Comments Fluarix Quadrivalent Syringe administered Source: Source Unspecified Payers Payer name Insurance type Covered constitution party ID Authorization(s) Marianne Patel [id number] Social History Type Description Quantity Date Captured Comments Unknown Vital Signs Date / Height Weight BMI Pulse Blood Temperature Respiratory Body Head BMI Time: Rate Pressure Rate Surface Circumference percentile Area Unknown Chief Complaint And Reason For Visit No information Reason For Referral Reason For Referral Unknown Plan Of Care Date Type Action Status Referral Referred To: ordered SUSAN SIN DO [address] [place], [address] [phone] Ordered: Referrals: Neurology. SUSAN SIN DO. 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 Location: [facility] Cardiology. Evaluate and treat Appointment date/timeframe: 09/05/2016 Referral Referred To: ordered VERENICE ALTAMIRANO MD [address] [place] [address] [place], [phone] Ordered: Referrals: Otolaryngology. VERENICE ALTAMIRANO MD. Evaluate [...] worsening symptoms. Thank you for choosing the [facility] Walk In. We hope that [...] afterward. Pt will continue to follow with production supv Related to Abdominal pain affecting and will keep her feet elevated when edema occurs. PT will discuss the use of the Related to Anxiety buspirone 7.5mg twice per day or one time each evening to help with her anxiety with her [employer] and her father of baby and will [...] begin antibiotics. Thank you for choosing the [facility] Walk Ins. We hope that [...]
--- OUTSIDE RECORDS SUMMARY | 2019-08-22 05:54 | XMS REPORT | Continuity of Care Document ---
:1995 External Reference #:[id number] Author Name Henry Davis M.D. 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 Provider Date H/O: section [...] Med RSN No Tbco SCRN Constanza Fausto, [facility] 08/31/2017 Injection PT SCRN Tbco Id as Non User Constanzagena Lambert, [facility] 08/31/2017 Injection PT SCRN Tbco Id as Non User Faiza Devries, [facility] 08/28/2017 Injection Immunizations CPT Code Status Date Vaccine Lot # [id number] Given 07/05/2019 Tetnus, Diptheria Toxoids And Acellular Pertussis, [id number] PT > 7Yrs Old [address] Given 02/21/2019 Influenza Vaccine Quadrivalent Preser/Antibiotic 294389 Free Im Use 95161 Given 11/12/2016 Tetnus, Diptheria Toxoids And Acellular [...] H/L Range Note Date Laboratory test 08/14/2019 [facility] Rupture of Negative 1 [place] [address] Membranes [phone] Urine Culture And 08/02/2019 [facility] Urine Culture SEE RESULT 2, 3 [place] [address] BELOW [phone] Laboratory test 08/02/2019 [facility] Gardnerella/Y SEE RESULT 4, 5 [place] [address] east: Vaginal BELOW [phone] Dna Laboratory test 08/02/2019 [facility] Group B Strep SEE RESULT 6, 7 [place] [address] Culture BELOW [phone] Screen Laboratory test 05/17/2019 [facility] Glucose 1 HR 88 mg/dL Normal 70-160 8, 9 [place] [address] Post Prandial [phone] CBC With No Diff 05/17/2019 [facility] White Blood 11.4 High 3.5-10.8 [place] [address] Count 10^3/uL [phone] Red Blood Count 4.15 10^6/uL Normal 3.70-4.87 Hemoglobin 12.5 g/dL Normal 12.0-16.0 Hematocrit 38 % Normal 35-47 Mean Corpuscular Volume 91 fL Normal 80-97 Mean Corpuscular Hemoglobin 30 pg Normal 27-31 Mean Corpuscular HGB Conc 33 g/dL Normal 31-36 Red Cell Distribution Width 15 % Normal 10-15 Platelet Count 228 10^3/uL Normal 150-450 Mean Platelet Volume 8.8 fL Normal 7.4-10.4 Laboratory 05/17/2019 [facility] Rubella Screen Equivocal Immune 10 [place] [address] IgG [phone] Drug Screen 03/29/2019 [facility] Urine None Detected None 11 [place] [address] Amphetamine Detect [facility] [phone] Screen Urine Barbiturates Screen None Detected None [...] None Detected None Detect GC/Chlamydia Dna 03/29/2019 [facility] GCCHL Disclaimer (SEE NOTE) [address] [place] [address] [phone] Chlamydia trachomatis Cheyenne Negative Negative Neisseria gonorrhoeae (GC) [place]yenne Negative Negative 1 A NEGATIVE results indicates there is no evidence of membrane rupture. 2 [id number] 3 SEE RESULT BELOW Name: KEATON OTT : [address]: Desiree Daniels MD Acct: [id number] Unit: [id number] AGE: 24 Location: [facility] Re08/02/19 SEX: F Status: REG REF SPEC: [id number] CRISTOBAL: 08/02/19-[address]: Desiree Daniels MD REQ: [id number] RECD: 08/02/19 STATUS: COMP _ SOURCE: URINE SPDESC: ORDERED: Urine Culture COMMENTS: [id number] Urine Source: Random Procedure Result Reported Site Urine Culture Final 08/03/19- 1221 ML No Growth (<1,000 CFU/mL) * - Main Lab . END OF REPORT DEPARTMENT OF PATHOLOGY, [address] [place] [address] Noel Heard M.D. Director [facility] # [id number] 4 [id number] 5 SEE RESULT BELOW Name: KEATON OTT : [address]: Desiree Daniels MD Acct: [id number] Unit: [id number] AGE: 24 Location: [facility] Re08/02/19 SEX: F Status: REG REF SPEC: [id number] CRISTOBAL: 08/02/19-1150 [facility] DR: Desiree Daniels MD REQ: [id number] RECD: 08/02/19 STATUS: COMP _ SOURCE: VAGINAL SPDESC: ORDERED: Christophe,Yeast DNA COMMENTS: [id number] Would you like to order Trichomonas Vaginalis [...] . END OF REPORT DEPARTMENT OF PATHOLOGY, [address] [place] [address] Noel Heard M.D. Director NIKKIE # [id number] SEE RESULT BELOW Name: KEATON OTT : [address]: Desiree Daniels MD Acct: [id number] Unit: [id number] AGE: 24 Location: [facility] Re08/02/19 SEX: F Status: REG REF SPEC: [id number] CRISTOBAL: 08/02/19-[address]: Desiree Daniels MD REQ: [id number] RECD: 08/02/19 STATUS: COMP _ SOURCE: CER/VAG/RE SPDESC: ORDERED: Grp B Strp Scrn COMMENTS: [id number] QUERIES: Is patient penicillin allergic and/or sensitivities needed? N Provider Requisition # C77#[id number]_ Procedure Result Reported Site Group B Strep [...] resistant strains have not been recognized. (CLSI E163-R24;p.66) Positive isolates will be saved for one week. Please call the Microbiology Laboratory if further susceptibility testing is needed. * ML - Main Lab . END OF REPORT DEPARTMENT OF PATHOLOGY, [address] [place] [address] Noel Heard M.D. Director [facility] # [id number] 11 [id number] 12 The specimen was tested at the [...] as applicable. Procedures Date Code Description Status 08/17/2019 54169 Non-Stress Test Completed 08/14/2019 94782 Non-Stress Test Completed 03/29/2019 80893 Echography Uterus Complete Completed Medical Devices Description No Information Available Encounters Type Date Location Provider Dx Diagnosis Office Visit 08/17/2019 [facility] Office Henry Davis, Z01.818 Encounter for other 9:20a M.DAbrahan preprocedural examination O36.8131 Decreased movements, third trimester, fetus 1 Office Visit 08/14/2019 11:30a Delivery Mor Mayorga MD O47.1 False labor at or after 37 completed weeks of gestation Assessments Date Code Description Provider 08/17/2019 Z01.818 Encounter for other preprocedural Henry Davis M.D. examination 08/17/2019 O36.8131 Decreased movements, third Henry Davis M.D. trimester, fetus 1 08/14/2019 O47.1 False labor at or after [...] 02/21/2019 Z23 Encounter for immunization Shahid Scott JR 02/21/2019 Z36.9 Encounter for screening, Shahid Scott JR, DO unspecified Plan of Treatment Future Appointment(s):09/21/2019 10:40 am - Henry Davis M.D. at [facility]08/22/2019 7:45 am - [place] [facility] 11:15 am - Carmencita Hodges CNM at [facility]08/22/2019 7:45 am - [place] [facility] [place]105/[place]/2017 - Desiree Daniels MDZ01.411 Encounter for [...] any time.F41.9 Anxiety disorder, unspecifiedComments:Given list of [id number] Headache Functional Status Description No Information Available Mental Status Description No Information Available Referrals Description No Information Available
--- OUTSIDE RECORDS SUMMARY | 2019-08-22 05:54 | XMS REPORT | Continuity of Care Document ---
:1995 External Reference #:[id number] Author Name Mor Mayorga MD (transmitted by agent of provider Yue Ramirez) Address [address] [place] [address] Care Team Providers Name Role Phone Yodit Curran FNP-C Care Team Information General Handling Supervisor [phone] Problems Active Problems Provider Date H/O: section [...] Tbco Id as Non User Faiza Devries, CNM 08/28/2017 Injection Immunizations CPT Code Status Date Vaccine Lot # [id number] Given 07/05/2019 Tetnus, Diptheria Toxoids And Acellular Pertussis, [id number] PT > 7Yrs Old [address] Given 02/21/2019 Influenza Vaccine Quadrivalent Preser/Antibiotic 165772 Free Im Use 50555 Given 11/12/2016 Tetnus, Diptheria Toxoids And Acellular [...] Mass Index) 23.5 kg/m2 Last Menstrual Period [id number] 1 Parity 1 Results Test Acquired Facility Test Result H/L Range Note Date Laboratory test 08/14/2019 [facility] Rupture of Negative 1 [place] [address] Membranes [phone] Urine Culture And 08/02/2019 [facility] Urine Culture SEE RESULT 2, 3 [place] [address] BELOW [phone] Laboratory test 08/02/2019 [facility] Gardnerella/Y SEE RESULT 4, 5 [place] [address] east: Vaginal BELOW [phone] Dna Laboratory test 08/02/2019 [facility] Group B Strep SEE RESULT 6, 7 [place] [address] Culture BELOW [phone] Screen Laboratory test 05/17/2019 [facility] Glucose 1 HR 88 mg/dL Normal 70-160 8, 9 [place] [address] Post Prandial [phone] CBC With No Diff 05/17/2019 [facility] White Blood 11.4 High 3.5-10.8 [place] [address] Count 10^3/uL [phone] Red Blood Count 4.15 10^6/uL Normal 3.70-4.87 Hemoglobin 12.5 g/dL Normal 12.0-16.0 Hematocrit 38 % Normal 35-47 Mean Corpuscular Volume 91 fL Normal 80-97 Mean Corpuscular Hemoglobin 30 pg Normal 27-31 Mean Corpuscular HGB Conc 33 g/dL Normal 31-36 Red Cell Distribution Width 15 % Normal 10-15 Platelet Count 228 10^3/uL Normal 150-450 Mean Platelet Volume 8.8 fL Normal 7.4-10.4 Laboratory 05/17/2019 [facility] Rubella Screen Equivocal Immune 10 [place] [address] IgG [phone] Drug Screen 03/29/2019 [facility] Urine None Detected None 11 [place] [address] Amphetamine Detect Clinic [phone] Screen Urine Barbiturates Screen None Detected None [...] None Detected None Detect GC/Chlamydia Dna 03/29/2019 [facility] GCCHL Disclaimer (SEE NOTE) [address] [place] [address] [phone] Chlamydia trachomatis [place] Negative Negative Neisseria gonorrhoeae (GC) [place]yenne Negative Negative 1 A NEGATIVE results indicates there is no evidence of membrane rupture. 2 [id number] 3 SEE RESULT BELOW Name: KEATON OTT : [address]: Desiree Daniels MD Acct: [id number] Unit: [id number] AGE: 24 Location: [facility] Re08/02/19 SEX: F Status: REG REF SPEC: [id number] CRISTOBAL: 08/02/19-[address]: Desiree Daniels MD REQ: [id number] RECD: 08/02/19 STATUS: COMP _ SOURCE: URINE SPDESC: ORDERED: Urine Culture COMMENTS: [id number] Urine Source: Random Procedure Result Reported Site Urine Culture Final 08/03/19- 1221 ML No Growth (<1,000 CFU/mL) * ML - Main Lab . END OF REPORT DEPARTMENT OF PATHOLOGY, [address] [place] [address] Noel Heard M.D. Director [facility] # [id number] 5 SEE RESULT BELOW Name: KEATON OTT KATHRYN : [address]: Desiree Daniels MD Acct: [id number] Unit: [id number] AGE: 24 Location: [facility] Re08/02/19 SEX: F Status: REG REF SPEC: [id number] CRISTOBAL: 08/02/19-[address]: Desiree Daniels MD REQ: [id number] RECD: 08/02/19 STATUS: COMP _ SOURCE: VAGINAL SPDESC: ORDERED: Christophe,Yeast DNA COMMENTS: [id number] Would you like to order Trichomonas Vaginalis [...] . END OF REPORT DEPARTMENT OF PATHOLOGY, [address] [place] [address] Noel Heard M.D. Director [facility] # [id number] 6 [id number] 7 SEE RESULT BELOW Name: KEATON OTT : [address]: Desiree Daniels MD Acct: [id number] Unit: [id number] AGE: 24 Location: [facility] Re08/02/19 SEX: F Status: REG REF SPEC: [id number] CRISTOBAL: 08/02/19-[address]: Desiree Daniels MD REQ: [id number] RECD: 08/02/19 STATUS: COMP _ SOURCE: ROBERTO/JANUSZ/RE SPDESC: ORDERED: Conrado Lincoln COMMENTS: [id number] QUERIES: Is patient penicillin allergic and/or sensitivities needed? N Provider Requisition # C77#[id number]_ Procedure Result Reported Site Group B Strep [...] resistant strains have not been recognized. (CLSI R028-O31;p.66) Positive isolates will be saved for one week. Please call the Microbiology Laboratory if further susceptibility testing is needed. * ML - Main Lab . END OF REPORT DEPARTMENT OF PATHOLOGY, [address] [place] [address] Noel Heard M.D. Director [facility] # [id number] 11 [id number] 12 The specimen was tested at the [...] applicable. Procedures Date Code Description Status 08/14/2019 14742 Non-Stress Test Completed 03/29/2019 86722 Echography Uterus Complete Completed Medical Devices Description No Information Available Encounters Type Date Location Provider Dx Diagnosis Office Visit 08/14/2019 11:30a Delivery Mor Mayorga MD O47.1 False labor at or after 37 completed weeks of gestation Assessments Date Code Description Provider 08/14/2019 O47.1 False labor at or after [...] 9:20 am - Henry Davis M.D. at [facility]09/21/2019 10:40 am - Henry Davis M.D. at [facility]08/22/2019 7: 45 am - [place] [facility] 11:15 am - Carmencita Hodges CNM at [facility]08/22/2019 7:45 am - Henry [place] M.[place]. [place] [facility] [place] [id number] - Desiree Daniels, MDZ01.411 Encounter [...] any time.F41.9 Anxiety disorder, unspecifiedComments:Given list of [id number] Headache Functional Status Description No Information Available Mental Status Description No Information Available Referrals Description No Information Available
--- OUTSIDE RECORDS SUMMARY | 2019-08-22 05:54 | XMS REPORT | Continuity of Care Document ---
:1995 Author Organization 0001 - [facility] Address [address] [place] [address] Phone Care Team Providers Name Role Phone ZAHRA TAYLOR NP Unavailable Unavailable Allergies, Adverse Reactions, Alerts Substance Reaction Status METHYLPHENIDATE HCL Shakiness (moderate to severe) Active Medications Medication Instructions Dosage Effective Dates Status Comments (start - stop) Prozac 20 mg capsule take 2 capsule by oral 40 MG - Active route every day in the morning Topamax 25 mg tablet take 1 by Oral route 1 - Active every bedtime Problems Condition Effective Dates (start - stop) [...] Visit Copied on Encounter 0001 - S May- [employer], Primary [place]. 119 33-57 Care 0 [facility], [place], [place] [address]. [place], tel:[phone], [place] [address] tel:[phone] 0001 - S URI with cough and [employer], Primary congestionAcute [place]. 119 33-57 Care non-recurrent 0 [facility] sinusitis, [facility] unspecified [place], [place] locationExposure [address]. [place], to the flu tel:[phone], [place] [address] tel:[phone] 0001 [facility] Viral warts, [facility] [employer], Walk-In unspecified [place]. 33-57 Center typeNumbness of [address] [place] [address], [place], [place], [place], [address]. [address], [place] tel:[phone] tel:[phone] 0001 - [facility] Painful lumpy left LORD PACO. [employer], Primary breastUnspecified 6- [facility]PC 119 33-57 Care lump in the left 9 [facility] unspecified [place], [place] quadrant [address]. [place], tel:[phone], [place] [address] tel:[phone] 0001 - S LORD ANTONIO. [employer], Primary 2-201 [facility] 119 33-57 Care 9 [facility], [facility], [place], [place] [address]. [place], tel:[phone], [place] [address] tel:[phone] 0001 - S Encounter for Champ-1 LORD PACO. S Inc, Primary screening for 2-201 SP 119 33-57 Care respiratory 9 [facility] tuberculosis [facility], [facility], [place], [place] [address]. [place], tel:[phone], [place] [address] tel:[phone] 0001 - S Cellulitis of left Champ-0 LORD PACO. S Inc, Primary breastHeart 4-201 [facility] 119 33-57 Care palpitationsIntrac [address] [place] [address] table persistent [facility] migraine aura [place], [place] without cerebral [address]. [place], infarction and tel:[phone], [place] without status [address] tel:[phone] migrainosusEncount [phone] er for screening for respiratory tuberculosis 0001 - S Painful lumpy left September-2 LORD PACO. S Inc, Primary breastUnspecified 8-201 [facility] 119 33-57 Care lump in the left 9 [facility] breast, [facility], [place] unspecified [place], [place] quadrantCellulitis [address]. [place], of left tel:[phone], [place] breastUnspecified [address] tel:[phone] lump in the left [phone] breast, upper outer quadrant 0001 - S Intractable September-0 LORD PACO. S Inc, Primary persistent 1-201 [facility] 119 33-57 Care migraine aura 9 [facility] without cerebral [facility] infarction and [facility] without status [address]. [place], migrainosusFatigue tel:[phone], [place] , unspecified [address] tel:[phone] typeHeart [phone] palpitationsPerium bilical abdominal pain 0001 - S AnxietyIntractable Oct-0 LORD PACO. [facility], Primary persistent 2-201 [facility] 119 33-57 Care migraine aura 8 [facility] without cerebral [facility] infarction and [facility] without status [address]. [place], migrainosusEncount tel:[phone], [place] er for screening [address] tel:[phone] for respiratory [phone] tuberculosis 0001 - S Intractable LORD ANTONIO. S Inc, Primary persistent - [facility] 119 33-57 Care migraine aura 8 [facility] without cerebral [facility], [place] infarction and [facility] without status [address]. [place], migrainosus tel:[phone], [place] [address] tel:[phone] 0001 - S Hematuria, LORD ANTONIO. S Inc, Primary unspecified - [facility] 119 33-57 Care typeBilious 8 [facility] vomiting with [facility] nausea [place], [place] [address]. [place], tel:[phone], [place] [address] tel:[phone] 0001 - S URI with cough and ANGIE [facility] Inc, Walk-In congestionAcute [facility]. [address]57 Center pharyngitis, [address] [place] [address] unspecifiedCntct w [facility], Street, and expsr to [facility] [place], [address]. [place], smoke (acute) tel:[phone], [place] (chronic) [address] tel:[phone] state, incidental [phone] 0001 - S Abdominal pain LORD ANTONIO. S Inc, Primary affecting [facility] 119 33-57 Care pregnancyHydroneph 7 [facility] rosis, [facility], [place] rightAnxiety [place], [place] [address]. [place], tel:[phone], [place] [address] tel:[phone] 0001 - S Anxiety LORD LEGER S Inc, Primary 8- [facility] 119 [address] [place] [address] [place], [place] [address]. [place], tel:[phone], [place] [address] tel:[phone] 0001 - S Postop September-2 FELY ALVINO. S Inc, ENT/Facia checkEncounter for 3 30 Deuce 33-57 l Plastic removal of 7 St, [address] [facility] suturesCntct w and 355, [facility], expsr to environ [place], [place] tobacco smoke [address]. [place], (acute) (chronic) tel:[phone], [place] [address] tel:[phone] 0001 - S Hypertrophic scar September- FELY ALVINO. S Inc, ENT/Facia 1- 30 Deuce 33-[address] [facility] [address], [facility], [place], [place] [address]. [place], tel:[phone], [place] [address] tel:[phone] 0001 - S Diarrhea, September-0 LORD ANTONIO. S Inc, Primary unspecified 9-201 [facility] 119 33-57 Care typeAbdominal pain 7 Whig , [facility], [place] pregnancyUnspecifi [place], [place] ed abdominal pain [address]. [place], tel:[phone], [place] [address] tel:[phone] 0001 - S Palpitations Jul-2 LORD PACO. S Inc, Primary 8-201 [facility] 119 33-[address], [facility], [place], [place] [address]. [place], tel:[phone], [place] [address] tel:[phone] 0001 - S DizzinessPalpitati May- [employer]. S Inc, Primary onsFatigue, 2-201 [facility] 119 33-57 Care unspecified type [address], [facility], [place], [place] [address]. [place], tel:[phone], [place] [address] tel:[phone] 0001 - S Acute sphenoidal May- LORD ANTONIO. S Inc, Primary sinusitis, 0-201 [facility] 119 33-57 Care unspecified [address] [facility] [address], [facility], [place], [place] [address]. [place], tel:[phone], [place] [address] tel:[phone] 0001 - [facility] Acute sphenoidal Mar- LORD ANTONIO. S Inc, Primary sinusitis, 9- [facility] 119 33-57 Care unspecifiedKeloid 6 [facility], [facility] of skin [facility], [place], [place] [address]. [place], tel:[phone], [place] [address] tel:[phone] 0001 - S Viral URIOther Sep-2 JOSE MEDINA. S Inc, Primary viral agents as 8- [facility] 119 33-57 Care the cause of 6 [facility] diseases [facility], [place], [place], [place] elsewhere [address]. [place], tel:[phone], [place] [address] tel:[phone] 0001 - S Major depressive Sep- LORD ANTONIO. S Inc, Primary disorder, single 6-201 [facility] 119 33-57 Care episode, 6 [facility] unspecified [facility], [place], [place] [address]. [place], tel:[phone], [place] [address] tel:[phone] 0001 - [facility] Adult general Nov- LORD ANTONIO. S Inc, Primary medical -201 [facility] 119 33-57 Care examAnxietyEncount 6 [facility] er for screening [facility] for respiratory [place], [place] tuberculosis [address]. [place], tel:[phone], [place] [address] tel:[phone] 0001 - S Foreign body in Dec- LORD ANTONIO. S Inc, Primary skin 1-201 [facility] 119 33-57 Care 5 [facility], [facility], [place], [place] [address]. [place], tel:[phone], [place] [address] tel:[phone] 0001 - S Acute pharyngitis September- [place] S Inc, Walk-In 1- [facility]. 33-57 Center 5 [address] [facility], Street, [facility], [address]. [place], tel:[phone], [place] [address] tel:[phone] 0001 - S Disorder, LORD ANTONIO. S Inc, Primary attention deficit 7-201 [facility] 119 33-57 Care w/o [address], [facility] hyperactivitySubsc [facility] apularis (muscle) [place], [place] [address]. [place], joint involving tel:[phone], [place] shoulder region [address] tel:[phone] 0001 - S Sinusitis, LORD ANTONIO. Referring [facility], Primary AcuteShoulder 0-201 [facility] 119 Provider: 33-57 Care strain 4 [facility], PACO CARRANZA, [facility] [address] [place], [place], [facility], [place] [address]. [place], tel:[phone] [place], [address], [place] [address] [place], [address]. tel:+60 tel:[phone] 0001 - S DepressionDisorder Sep-2 LORD ANTONIO. S Inc, Primary , attention 5-201 [facility] 119 33-57 Care deficit 4 [facility] w/hyperactivityInf [facility], [place] luenza Vaccine [place], [place] [address]. [place], tel:[phone], [place] [address] tel:[phone] 0001 - S DepressionDisorder Dec-2 LORD ANTONIO. S Inc, Primary , attention 8-201 [facility] 119 33-57 Care deficit 4 [facility], [facility] w/hyperactivityWar [facility], [place] tWarts, other [place], [place] specified viral [address]. [place], tel:[phone], [place] [address] tel:[phone] 0001 - S Disorder, LORD ANTONIO. [facility], Primary attention deficit 1-201 [facility] 119 33-57 Care w/o 4 [facility], [facility] hyperactivityDepre [facility] ssionWart [place], [place] [address]. [place], tel:[phone], [place] [address] tel:[phone] 0001 - [facility] Sinusitis, acute SAIMAGONZALES MEDINA. Referring [facility] Inc, Primary 7-201 [facility] 119 Provider: 33-[address] [place], [place] [address]CAROL [facility] SKI, [facility] Street, [place], [place], PC 119 [place] [address]. [facility], [place], tel:[phone] [place] [address], [place] [address] [place], tel:+60 [place], [address]. [phone] tel:[phone] 0001 - [facility] Inguinal Referring [facility], Walk-In lymphadenopathySki Provider: 33-57 Center n lesion of left 3 WALKIN [facility] leg OMID, Street, [address] [facility] [place], [address], [address], [place] O[place], tel:+60 [place], [address]. [phone] 0001 - [facility] Disorder, September-2 PACO. [facility] Inc, Primary attention deficit 3-201 [facility] 119 33-57 Care w/hyperactivityDis 3 [facility], [facility], [place], [place], [place] w/hyperactivity [address]. [place], tel:[phone], [place] [address] tel:[phone] 0001 - [facility] Attention deficit May-1 LORD ANTONIO. S Inc, Primary disorder with 0-201 [facility] 119 33-57 Care hyperactivityDisor 3 [facility], [facility], [place], [place], [place] w/hyperactivity [address]. [place], tel:[phone], [place] [address] tel:[phone] 0001 - [facility] Attention deficit May-0 PACO. S Inc, Primary disorder with 3-201 [facility] 119 33-57 Care hyperactivitySinus 3 [facility], [facility] itis, [facility], [place] AcuteDisorder, [place], [place] attention deficit [address]. [place], w/hyperactivitySin tel:[phone], [place] usitis, Acute [address] tel:[phone] 0001 - S Rhinitis, allergic Apr-2 JOSE MEDINA. Referring [facility] Inc, Primary NOSSinusitis, S PC 119 Provider: 33-57 Care AcuteOtitis [address] [place] [address] mediaRhinitis, [facility], [facility] Street, [place] allergic [place], [place], PC 119 [place] NOSSinusitis, [address]. [facility], [place], AcuteOtitis media tel:[phone] [place] [address], [place] N[place] [address] [place], tel:+[phone] [place], [address]. [phone] tel:[phone] 0001 - S Attention deficit Apr-1 LORD PACO. [facility] Inc, Primary disorder with [facility] 119 33-57 Care hyperactivityAtten [address] [place] [address] tion deficit [facility], [place] disorder with [place], [place] hyperactivityAtten [address]. [place], tion deficit tel:[phone], [place] disorder with [address] tel:+60 hyperactivityDisor [phone] barbara, attention deficit w/hyperactivity 0001 - S Disorder, Mar-2 LORD PACO. [facility] Inc, Primary attention deficit 5-201 [facility] 119 33-57 Care w/o [address] [place] [address] hyperactivityDisor [facility] barbara, attention [place], [place], [place] deficit w/o [address]. [place], hyperactivity tel:[phone], [place] [address] tel:[phone] 0001 - S Mar-2 LORD PACO. [facility] Inc, Primary 1-201 [facility] 119 33-57 Care 3 [facility], [facility], [facility], [place], [place] [address]. [place], tel:[phone], [place] [address] tel:[phone] 0001 - S DepressionDisorder Mar-2 LORD PACO. [facility] Inc, Primary , attention 0-201 [facility] 119 33-57 Care deficit w/o [address] [facility], [facility] hyperactivityDepre [facility] ssionDisorder, [place], [place] attention deficit [address]. [place], w/o hyperactivity tel:[phone], [place] [address] tel:[phone] 0001 - S DepressedDepressio Feb- LORD ANTONIO. [facility], Primary n 8-201 [facility] 119 33-57 Care 3 [facility], [facility], [place], [place] [address]. [place], tel:[phone], [place] [address] tel:[phone] 0001 - S Acute lower Aug-1 LORD ANTONIO. [facility] Inc, Primary UTIUrinary Tract 7- [facility] 119 33-57 Care InfectionUrinary 2 [facility] Tract Infection [facility], [place], [place] [address]. [place], tel:[phone], [place] [address] tel:[phone] 0001 - S Acute lower Aug-0 LORD ANTONIO. Referring [facility], Primary UTIUrinary Tract 3-201 [facility] 119 Provider: 33-57 Care InfectionUrinary 2 [facility], PACO , [facility] Tract Infection [facility] [address], [place], [facility], [place] [address]. [place], tel:[phone] [facility] [address], [place] [address] [place], [address]. tel:+60 tel:[phone] 0001 - S Contraception Nov- LORD ANTONIO. [facility] Inc, Primary managementContrace 3-201 [facility] 119 33-57 Care ptive management 2 [facility], [facility] NOS [facility], [place], [place] [address]. [place], tel:[phone], [place] [address] tel:[phone] 0001 - [facility] Screening for Mar-0 LORD ANTONIO. [facility] Inc, Primary malignant 7- [facility] 119 33-57 Care neoplasm, [address] [facility], [facility] cervixScreening [facility] for malignant [place], [place] neoplasm, cervix [address]. [place], tel:[phone], [place] [address] tel:[phone] 0001 - [facility] Check, routine, LORD ANTONIO. [facility] Inc, Primary /childCheck, 8-201 [facility] 119 33-57 Care routine, 2 [facility] /child [facility], [place], [place] [address]. [place], tel:[phone], [place] [address] tel:[phone] Family History Family Member Diagnosis Age At Onset Father Hyperlipidemia Maternal grandfather Coronary artery disease Paternal grandmother Leukemia Father Sleep apnea Paternal grandmother Stroke Maternal grandfather Cancer, colon Mother alive and well Immunizations Vaccine Date Status Comments Fluarix Quadrivalent Syringe administered Source: Source Unspecified Payers Payer name Insurance type Covered constitution party ID Authorization(s) Marianne Patel [id number] Social History Type Description Quantity Date Captured [...] Referred To: ordered SUSAN SIN DO [address] [place], [phone] Ordered: Referrals: Neurology. SUSAN SIN DO. Evaluate [...] date/timeframe: 09/17/2018 Referral Ordered: ordered U/S Transvaginal VOLUNTEER ASSISTANT Appointment date/timeframe: 09/28/2018 Referral Ordered: ordered U/S Renal/Retroperitoneal complete Referral Ordered: ordered U/S Abdomen complete Appointment date/timeframe: 1 Week Referral Ordered: ordered Referrals: Cardiology. Location: [facility] Cardiology. Evaluate and treat Appointment date/timeframe: 09/05/2016 Referral Referred To: ordered VERENICE ALTAMIRANO MD [address] [place], [phone] Ordered: Referrals: Otolaryngology. VERENICE ALTAMIRANO MD. Evaluate and treat Appointment date/timeframe: 07/31/2016 Referral Ordered: ordered Xray Spine Thoracic complete Referral Ordered: ordered Xray Shoulder Complete (Must choose side) Left shoulder Referral Ordered: ordered . Physical Therapy. Evaluate patient, develop plan and implement plan. Date Type Problem Goal Intervention Status Start [...] worsening symptoms. Thank you for choosing the [facility] Walk In. We hope that you will [...] afterward. Pt will continue to follow with inventory control clerk Related to Abdominal pain affecting and will keep her feet elevated when edema occurs. 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 Thank you for choosing the [facility] Walk Ins. We hope that you will [...]
[2019-08-22] MEDS ORDERED: Lactated Ringers 1000 ML Bag* 1,000 ML IV SCH ×2 (06:00→10:00)
[2019-08-22] MEDS ORDERED: Sodium Citrate/Citric Acid* 15 ML UDC PO ONE (06:00)
[2019-08-22] MEDS ORDERED: ceFOXitin 2 GM IVPREMIX* 2 GM/50 ML BAG IVPB ONE (07:00)
[2019-08-22] MEDS ORDERED: OXYTOCIN* 10 UNITS/ML 1 ML VIAL ONE (07:18)
[2019-08-22] MEDS ORDERED: Phenylephrine 40 MCG/ML SYRINGE ONE (07:18)
[2019-08-22] MEDS ORDERED: Morphine PF AMP (0.5MG/ML)* 5 MG/10 ML AMP ONE (07:19)
[2019-08-22] MEDS ORDERED: Ondansetron INJ* 2 MG/ML VIAL IV PRN ×2 (07:44→08:29)
[2019-08-22] MEDS ORDERED: fentaNYL* 50 MCG/ML 2 ML VIAL (100 MCG VIAL) IV PRN (07:44)
[2019-08-22] MEDS ORDERED: Naloxone* 0.4 MG/ML 1 ML VIAL IV PRN ×2 (07:44→08:29)
[2019-08-22] MEDS ORDERED: Ondansetron INJ* 2 MG/ML VIAL ONE (08:14)
[2019-08-22] MEDS ORDERED: fentaNYL* 50 MCG/ML 2 ML VIAL (100 MCG VIAL) ONE ×2 (08:19→08:23)
[2019-08-22] MEDS ORDERED: oxyCODONE/Acetamin 5/325 MG* TAB PO PRN (08:29)
[2019-08-22] MEDS ORDERED: Nalbuphine* 10 MG/ML 1 ML VIAL IV PRN (08:29)
[2019-08-22] MEDS ORDERED: Scopolamine 1.5 mg* PATCH TRANSDERM PRN (08:29)
[2019-08-22] MEDS ORDERED: Ketorolac INJ* 30 MG/ML 1 ML VIAL ONE (08:37)
[2019-08-22] MEDS ORDERED: diPHENhydraMINE IV* 50 MG/ML 1 ml VIAL (BENADRYL) ONE (08:43)
[2019-08-22] MEDS ORDERED: Zolpidem TAB* 5 MG PO PRN (09:07)
[2019-08-22] MEDS ORDERED: oxyCODONE TAB* 5 MG TAB PO PRN ×2 (09:07)
[2019-08-22] MEDS ORDERED: Witch Hazel PAD* JAR TOPICAL PRN (09:07)
[2019-08-22] MEDS ORDERED: Glycerin ADULT SUPP PR PRN (09:07)
[2019-08-22] MEDS ORDERED: Dibucaine 1% 28.35 GM TUBE PR PRN (09:07)
--- NOTE | 2019-08-22 09:51 | OP ---
OPERATIVE REPORT: DATE OF OPERATION: DATE OF : 89 SURGEON: Henry Davis MD PRE-OP DIAGNOSIS: Previous section, desires permanent sterilization. POST-OP DIAGNOSIS: Previous section, desires permanent sterilization. PROCEDURE: Low transverse section and bilateral tubal ligation. COMPLICATIONS: None. FINDINGS: This is a 24-year-old 2, para 1 with a previous section, desiring an elec tive repeat. At the time of , she had a viable male, Apgars 9 and 9, weight was 8 pounds 14 ounces. The fallopian tubes and ovaries all appeared normal. DESCRIPTION OF PROCEDURE: The patient identified, procedure identified as a low transverse section. The patient was taken to the operating room, prepped and draped in the usual fashion in lef t lateral recumbent position under spinal anesthesia. A Pfannenstiel incision was in the abdomen, ca rried down through fat, fascia, and peritoneum. A transverse incision was made in the lower uterine segment and extended laterally using blunt dissection. The above was delivered through the in cision with ease. The cord was doubly clamped and cut, and the infant was handed to the awaiting ped iatrician. Cord blood was obtained. Placenta delivered spontaneously. The uterus was wiped out with a wet alp sponge. The uterine incision was then closed using a 0 Polysorb in a running fashion. A s econd layer was used to imbricate the first layer. Good hemostasis was verified. The right fallopian tube was gasped into mid portion, followed out to its fimbriated ends, and the fimbria was then liga mahamed x2 and excised. Same procedure was carried on the left after following out to its fimbriated end s. Good hemostasis was verified. The uterus was placed back in the abdominal cavity. The gutters w ere wiped out with wet lap sponge. All sites were found to be hemostatic. The peritoneum was then cl osed using 3-0 Vicryl in a running fashion. Good hemostasis achieved in the subrectus layers. The f ascia was closed using 0 Polysorb in a running fashion. Hemostasis achieved in the subcu. The space was closed using with 3-0 Vicryl in a simple fashion. The skin was closed with 4-0 Monocryl in a subcuticular fashion. Mastisol and Steri-Strips were applied, and the patient returned to the rec overy room in stable condition. All sponge and instrument counts are correct. [id number]/CPS #: [id number]
[2019-08-22] MEDS ORDERED: Oxytocin in LR* 20 UNITS/1,000 ML BAG IVPB SCH (10:00)
[2019-08-22] MEDS: Docusate CAP* 100 MG PO SCH ×2 (12:21→20:56)
[2019-08-22] MEDS: oxyCODONE/Acetamin 5/325 MG* TAB PO PRN ×3 (12:22→22:44)
[2019-08-22] MEDS: Simethicone TAB* 80 MG TAB.CHEW PO SCH ×3 (12:22→20:56)
[2019-08-22] MEDS: Ketorolac INJ* 30 MG/ML 1 ML VIAL IV PRN ×2 (14:52→20:55)
[2019-08-22] MEDS: diPHENhydraMINE IV* 50 MG/ML 1 ml VIAL (BENADRYL) IV PRN ×2 (16:40→22:44)
[2019-08-22] MEDS ORDERED: diPHENhydraMINE PO* 25 MG PO PRN (23:07)
[2019-08-23] MEDS: Ibuprofen TAB* 600 MG PO PRN ×3 (03:23→19:27)
[2019-08-23] MEDS: oxyCODONE TAB* 5 MG TAB PO PRN ×5 (03:24→21:15)
[2019-08-23 06:39] LABS: ABS Eosinophils 0.1 10^3/ul (0-0.6); ABS Lymphocytes 1.1 10^3/ul (1.0-4.8); ABS Monocytes 1.4 10^3/ul (0-0.8); ABS Neutrophils 9.9 10^3/ul (1.5-7.7); Eosinophil % 0.5 %; Hematocrit 32 % (35-47); Hemoglobin 10.5 g/dL (12.0-16.0); Lymphocyte % 8.7 %; Mean Corpuscular HGB Conc 33 g/dL (31-36); Mean Corpuscular Hemoglobin 27 pg (27-31); Mean Corpuscular Volume 83 fL (80-97); Platelet Count 176 10^3/uL (150-450); Red Blood Count 3.83 10^6 /uL (3.70-4.87); Red Cell Distribution Width 15 % (10-15); White Blood Count 12.5 10^3/uL (3.5-10.8)
[2019-08-23] MEDS: Ferrous Gluconate TAB* 324 MG TAB PO SCH (08:29)
[2019-08-23] MEDS: Simethicone TAB* 80 MG TAB.CHEW PO SCH ×4 (08:29→21:16)
[2019-08-23] MEDS: Docusate CAP* 100 MG PO SCH ×3 (08:30→21:15)
[2019-08-23] MEDS ORDERED: Measles, Mumps,Rubella VACC* 0.5 ML/VIAL SUBCUT ONE (09:00)
[2019-08-24] MEDS: Ibuprofen TAB* 600 MG PO PRN ×2 (01:34→09:24)
[2019-08-24] MEDS: oxyCODONE TAB* 5 MG TAB PO PRN ×3 (01:34→11:13)
[2019-08-24] MEDS: Ferrous Gluconate TAB* 324 MG TAB PO SCH (06:17)
[2019-08-24] MEDS: Acetaminophen TAB* 325 MG PO PRN ×2 (06:35→11:13)
[2019-08-24 07:54] VITALS: BP 113/82
[2019-08-24] MEDS: Simethicone TAB* 80 MG TAB.CHEW PO SCH (09:24)
[2019-08-24] MEDS: Docusate CAP* 100 MG PO SCH (09:24)
[2019-08-25] MEDS ORDERED: Scopolamine PATCH Remove* 1 NOTE MISC PATCH OFF PRN (08:32)
== END 2019-08-24 12:40 | disposition home or self-care (01) | DRG 785 ==
LOC: UNDOADMIN 05:50 → MCHOB 05:50
PROVIDERS: ADMIT Obstetrics & Gynecology; ATTEND Obstetrics & Gynecology
PROC: 0UB70ZZ Excision of Bilateral Fallopian Tubes, Open Approach (ICD-10-PCS; 2019-08-22)
PROC: 10D00Z1 Extraction of Products of Conception, Low, Open Approach (ICD-10-PCS; principal; 2019-08-22 07:48)
DX: O34.211 Maternal care for low transverse scar from previous cesarean delivery (principal); O99.824 Streptococcus B carrier state complicating childbirth; O99.344 Other mental disorders complicating childbirth; F32.9 Major depressive disorder, single episode, unspecified; Z3A.39 39 weeks gestation of pregnancy; Z37.0 Single live birth; Z30.2 Encounter for sterilization
CPT/HCPCS: 36415; 85025; 88302; A9270-GY; J0694; J1200; J1885; J2405; J2590; J3010